=== PATIENT | female | born 1980 | race Caucasian/White ===

== ENCOUNTER 2018-02-05 08:30 | Day surgery (SDC) | payer BC ==
[2018-02-03 12:26] VITALS: BMI 34.4
--- NOTE | 2018-02-05 08:14 | P.GSHP ---
History of Present Illness H&P Date: 02/05/18 CHIEF COMPLAINT: Altered bowel habits HISTORY OF PRESENT ILLNESS: The patient is a 38-year-old female who presents for altered bowel habit. Lower endoscopy was offered for further evaluation and management. PAST MEDICAL HISTORY: Please see list. PAST SURGICAL HISTORY: Please see list. MEDICATIONS: Please see list. ALLERGIES: Please see list. SOCIAL HISTORY: No illicit drug use FAMILY HISTORY: No reports of Crohn disease or ulcerative colitis. REVIEW OF ORGAN SYSTEMS: CONSTITUTIONAL: No reports of fevers or chills. PHYSICAL EXAM: VITAL SIGNS: Stable GENERAL: Well-developed pleasant in no acute distress. HEENT: No scleral icterus. Extraocular movements grossly intact. Moist buccal mucosa. NECK: Supple without lymphadenopathy. CHEST: Unlabored respirations. Equal bilateral excursions. CARDIOVASCULAR: Regular rate and rhythm. Distal 2+ pulses. ABDOMEN: Soft, nontender, nondistended. MUSCULOSKELETAL: No clubbing, cyanosis, or edema. ASSESSMENT: 1. Altered bowel habits PLAN: 1. Recommend proceeding with a lower endoscopy Past Medical History Past Medical History: Hypertension, Osteoarthritis (OA) Additional Past Medical History / Comment(s): FAST HEART RATE ,MIGRAINE HEADACHE , IBS, History of Any Multi-Drug Resistant Organisms: None Reported Past Surgical History: No Surgical Hx Reported Past Anesthesia/Blood Transfusion Reactions: Family History of Problems w/ Anesthesia Additional Past Anesthesia/Blood Transfusion Reaction / Comment(s): FIRST ANESTHETIC. FATHER- DIFFICULTY WITH BREATHING Smoking Status: Never smoker - Past Family History Mother Family Medical History: No Reported History Medications and Allergies Home Medications Medication Instructions Recorded Confirmed Type Lisinopril/Hydrochlorothiazide 1 each PO DAILY 02/03/18 02/03/18 History [Zestoretic 10-12.5] Metoprolol Succinate [Toprol Xl] 50 mg PO DAILY 02/03/18 02/03/18 History Allergies Allergy/AdvReac Type Severity Reaction Status Date / Time dichloralphenazone Allergy HEADACHE Verified 02/03/18 12:05 [From Midrin] AND HIGH BLOOD PRESSURE isometheptene [From Midrin] Allergy HEADACHE Verified 02/03/18 12:05 AND HIGH BLOOD PRESSURE
[~2018-02-05 08:30] MED LIST: LACTATED RINGERS 1,000 ML IV SCH; LIDOCAINE 1% 20 ML VIAL (10MG/ML) FOR IV START INTRADERMA PRN
[2018-02-05 08:58] VITALS: RESP 16; TEMP 97.8
[2018-02-05] MEDS ORDERED: PROPOFOL 10 MG/ML 20 ML VIAL IV ONE (09:46)
--- NOTE | 2018-02-05 10:21 | P.PCN ---
Date of Procedure: 02/05/18 Description of Procedure: PREOPERATIVE DIAGNOSIS: Change in bowel habits Chronic diarrhea POSTOPERATIVE DIAGNOSIS: Change in bowel habits Chronic diarrhea OPERATION: Colonoscopy to the ileocecal valve and appendiceal orifice. Colonoscopy with random cold forceps biopsies for microscopic colitis SURGEON: Homa Allen MD. ANESTHESIA: MAC. INDICATIONS: The patient is a 38-year-old female who presents for colonoscopy screening. Benefits and risks were described and informed consent was obtained. DESCRIPTION OF PROCEDURE: The patient had undergone Gatorade, MiraLAX and Dulcolax prep. She had been brought into the operating room and laid in the left lateral decubitus position. After adequate intravenous sedation, the rectum was examined with 2% lidocaine jelly. No external hemorrhoids were encountered. The rectal tone was within normal limits. No lesions were palpated in the rectal vault. An Olympus colonoscope was advanced until the ileocecal valve and appendiceal orifice were clearly viewed. The prep was excellent with clear visualization of the mucosal folds. The scope was removed with visualization of each mucosal fold. No scattered diverticulosis was encountered. No colonic polyps were found. Random cold forceps biopsies were obtained throughout the colon. Retroflexion of the scope demonstrated grade 1 internal hemorrhoids without active bleeding or inflammation. The colon was desufflated. The patient had tolerated the procedure well. Withdrawal time was over 6 minutes. FINDINGS: Internal hemorrhoids, grade 1 No external prolapsed hemorrhoids. No arteriovenous malformations. No adenomatous polyps. Random cold forceps biopsies were obtained throughout the colon. No sigmoid diverticulosis RECOMMENDATIONS: Lower endoscopy in 10 years per screening guidelines, 2027. Plan - Discharge Summary New Discharge Prescriptions: No Action Metoprolol Succinate [Toprol Xl] 50 mg PO DAILY Lisinopril/Hydrochlorothiazide [Zestoretic 10-12.5] 1 each PO DAILY Discharge Medication List Lisinopril/Hydrochlorothiazide [Zestoretic 10-12.5] 1 each PO DAILY 02/03/18 [ History] Metoprolol Succinate [Toprol Xl] 50 mg PO DAILY 02/03/18 [History]
[2018-02-05 10:40] VITALS: BP 140/83; PULSE 60
== END 2018-02-05 10:52 | disposition home or self-care (01) ==
LOC: ORWHC2ENDO 08:30
PROVIDERS: ATTEND Surgery Plastic and Reconstructive Surgery
DX: K52.9 Noninfective gastroenteritis and colitis, unspecified (principal); R19.4 Change in bowel habit; K64.0 First degree hemorrhoids; I10 Essential (primary) hypertension; M19.90 Unspecified osteoarthritis, unspecified site; K58.9 Irritable bowel syndrome, unspecified; Z79.899 Other long term (current) drug therapy; Z88.8 Allergy status to other drugs, medicaments and biological substances; K21.9 Gastro-esophageal reflux disease without esophagitis
CPT/HCPCS: 81025; 88305; 45380; J2704

== ENCOUNTER → 2019-05-21 | Outpatient (CLI) | payer BC ==
--- NOTE | 2019-05-26 09:50 | MM ---
Reason for exam: screening (asymptomatic). History: Family history of breast cancer in maternal grandmother and breast cancer in maternal aunt. Physical Findings: A clinical breast exam by your physician is recommended on an annual basis and results should be correlated with mammographic findings. MG 3D Screening Mammo W/Cad Bilateral CC and MLO view(s) were taken. No prior studies available for comparison. There are scattered fibroglandular densities. There is no discrete abnormality. ASSESSMENT: Negative, BI-RAD 1 RECOMMENDATION: Routine screening mammogram of both breasts in 1 year.
== END | disposition home or self-care (01) ==
LOC: RADMAMWWP 12:59
PROVIDERS: ATTEND Family Medicine
DX: Z12.31 Encounter for screening mammogram for malignant neoplasm of breast (principal)
CPT/HCPCS: 77063; 77067

== ENCOUNTER → 2021-03-07 | Outpatient (CLI) | payer BC ==
--- NOTE | 2021-03-09 08:52 | MM ---
Reason for exam: screening (asymptomatic). Last mammogram was performed 1 year and 10 months ago. History: Family history of breast cancer in maternal grandmother and breast cancer in maternal aunt. Physical Findings: A clinical breast exam by your physician is recommended on an annual basis and results should be correlated with mammographic findings. MG 3D Screening Mammo W/Cad Bilateral CC and MLO view(s) were taken. Prior study comparison: May 21, 2019, bilateral MG 3d screening mammo w/cad. The breast tissue is heterogeneously dense. This may lower the sensitivity of mammography. There is no dominant lesion. ASSESSMENT: Incomplete: need additional imaging evaluation, BI-RAD 0 RECOMMENDATION: Ultrasound of the right breast. (localized pain subareolar right breast) [facility] will attempt to contact patient to return for ultrasound.
== END | disposition home or self-care (01) ==
LOC: RADMAMWWP 13:10
PROVIDERS: ATTEND Family Medicine
DX: Z12.31 Encounter for screening mammogram for malignant neoplasm of breast (principal); Z80.3 Family history of malignant neoplasm of breast
CPT/HCPCS: 77063; 77067

== ENCOUNTER → 2021-03-30 | Outpatient (CLI) | payer BC ==
--- NOTE | 2021-03-31 14:58 | USB ---
Reason for exam: additional evaluation requested from abnormal screening. History: Family history of breast cancer in maternal grandmother and breast cancer in maternal aunt. Physical Findings: Nurse did not find any significant physical abnormalities on exam. US Breast Workup Limited RT Technologist: Audrey Orellana Right limited breast ultrasound including focal area of concern, retroareolar and axilla demonstrates no cystic or solid lesion seen. No sonographic findings. These results were verbally communicated with the patient and result sheet given to the patient on 03/30/21. ASSESSMENT: Benign, BI-RAD 2 RECOMMENDATION: Return to routine screening mammogram schedule for both breasts.
== END | disposition home or self-care (01) ==
LOC: RADUSWWP 14:54
PROVIDERS: ATTEND Family Medicine
DX: R92.8 Other abnormal and inconclusive findings on diagnostic imaging of breast (principal); Z80.3 Family history of malignant neoplasm of breast

== ENCOUNTER → 2023-03-12 | Outpatient (CLI) | payer BC ==
--- NOTE | 2023-03-13 16:33 | MM ---
Reason for Exam: Screening (asymptomatic). Last mammogram was performed 2 year(s) and 0 month(s) ago. Patient History: Menarche at age 10. First Full-Term at age 18. Premenopausal. Maternal grandmother had breast cancer. Maternal aunt had breast cancer. Last menstrual period: 03/01/2023 Risk Values: Diana 5 year model risk: 0.7%. NCI Lifetime model risk: 8.6%. Prior Study Comparison: 05/21/2019 Bilateral Screening Mammogram, [facility]. 03/07/2021 Bilateral Screening Mammogram, [facility]. Tissue Density: There are scattered fibroglandular densities. Findings: Analyzed By CAD. Pattern appears symmetrical and stable. No suspicious groups of microcalcifications, spiculated or lobular masses, architectural distortion or other secondary signs of malignancy are mammographically apparent. Overall Assessment: Benign, BI-RAD 2 Management: Screening Mammogram of both breasts in 1 year. A negative mammogram report should not preclude additional follow up of suspicious palpable abnormalities. Patient should continue monthly self breast exam. A clinical breast exam by your physician is recommended on an annual basis and results should be correlated with mammographic findings. Electronically signed and approved by: Jovanny Chaudhry D.O. Radiologis
== END | disposition home or self-care (01) ==
LOC: RADMAMWWP 13:33
PROVIDERS: ATTEND Family Medicine
DX: Z12.31 Encounter for screening mammogram for malignant neoplasm of breast (principal); Z80.3 Family history of malignant neoplasm of breast
CPT/HCPCS: 77063; 77067

== ENCOUNTER 2023-09-08 07:06 | Emergency (ER) | payer BC ==
--- NOTE | 2023-09-08 07:45 | ED ---
Female Urogenital HPI - General Chief complaint: Vaginal Bleeding Stated complaint: vaginal bleeding Time Seen by Provider: 09/08/23 07:20 Source: patient, RN notes reviewed Mode of arrival: ambulatory Limitations: no limitations - History of Present Illness Initial comments: This is a 43-year-old female who presents to the emergency department for vagin al bleeding. States that this started out as light spotting, and has consistently increased. She was previously going through one tampon an hour and is now going through 1 tampon every half hour. She is not taking any kind of control. Denies any chance of . States that her periods are typically regular. Denies any history of similar problems in the past. Reports a known uterine fibroid, but otherwise denies any gynecological issues. MD Complaint: vaginal bleeding Onset/Timin -: days(s) - Related Data Home Medications Medication Instructions Recorded Confirmed Lisinopril/Hydrochlorothiazide 1 each PO DAILY 02/03/18 02/03/18 [Zestoretic 10-12.5] Metoprolol Succinate [Toprol Xl] 50 mg PO DAILY 02/03/18 02/03/18 Allergies Allergy/AdvReac Type Severity Reaction Status Date / Time dichloralphenazone Allergy HEADACHE Verified 09/08/23 07:19 [From Midrin] AND HIGH BLOOD PRESSURE isometheptene [From Midrin] Allergy HEADACHE Verified 09/08/23 07:19 AND HIGH BLOOD PRESSURE Review of Systems ROS Statement: Those systems with pertinent positive or pertinent negative responses have been documented in the HPI. ROS Other: All systems not noted in ROS Statement are negative. Past Medical History Past Medical History: Hypertension, Osteoarthritis (OA) Additional Past Medical History / Comment(s): FAST HEART RATE ,MIGRAINE HEADACHE , IBS, History of Any Multi-Drug Resistant Organisms: None Reported Past Surgical History: No Surgical Hx Reported Past Anesthesia/Blood Transfusion Reactions: Family History of Problems w/ Anesthesia Additional Past Anesthesia/Blood Transfusion Reaction / Comment(s): FIRST ANESTHETIC. FATHER- DIFFICULTY WITH BREATHING Past Psychological History: No Psychological Hx Reported Smoking Status: Never smoker Past Alcohol Use History: Occasional Past Drug Use History: None Reported - Past Family History Mother Family Medical History: No Reported History General Exam Limitations: no limitations General appearance: alert, in no apparent distress Head exam: Present: atraumatic, normocephalic, normal inspection Respiratory exam: Present: normal lung sounds bilaterally. Absent: respiratory distress, wheezes, rales, rhonchi, stridor Cardiovascular Exam: Present: regular rate, normal rhythm, normal heart sounds. Absent: systolic murmur, diastolic murmur, rubs, gallop, clicks GI/Abdominal exam: Present: soft, normal bowel sounds. Absent: distended, tenderness, guarding, rebound, rigid Neurological exam: Present: alert, oriented X3, CN II-XII intact Psychiatric exam: Present: normal affect, normal mood Skin exam: Present: warm, dry, intact, normal color. Absent: rash Course Vital Signs 09/08/23 09/08/23 09/08/23 07:18 08:52 10:07 Temperature 98.2 F Pulse Rate 88 72 70 Respiratory 20 18 18 Rate Blood Pressure 134/85 130/75 132/66 O2 Sat by Pulse 99 95 99 Oximetry 09/08/23 11:11 Temperature 98.4 F Pulse Rate 68 Respiratory 18 Rate Blood Pressure 122/64 O2 Sat by Pulse 99 Oximetry Medical Decision Making - Medical Decision Making This is a 43-year-old female who presents to the emergency department for vaginal bleeding. Was pt. sent in by a medical professional or institution? @ -No Did you speak to anyone other than the patient for history? @ -No Did you review nursing and triage notes? @ -Yes, and I agree, it is accurate with regards to the patient's symptoms. Were old charts reviewed? @ -No Differential Diagnosis? @ -Differential Vaginal Bleeding: Spontaneous , threatened , molar , ectopic , incompetent cervix, placenta previa, uterine rupture, dysfunctional uterine bleeding, hemorrhage, uterine fibroids, malignancy, coagulopathy, PID, cervicitis, adenomyosis, vaginal trauma, this is not meant to be an all- inclusive list. EKG interpreted by me (3pts min.)? @ -Not obtained X-rays interpreted by me (1pt min.)? @ -Not obtained CT interpreted by me (1pt min.)? @ -Not obtained U/S interpreted by me (1pt. min.)? @ -Transvaginal ultrasound obtained. My interpretation identifies a right- sided uterine fibroid. What testing was considered but not performed? (CT, X-rays, U/S, labs)? Why? @ -None What meds were considered but not given? Why? @ -None Did you discuss the management of the patient with other professionals? @ -No Did you reconcile home meds? @ -No Was smoking cessation discussed for >3mins.? @ -No Was critical care preformed (if so, how long)? @ -No Were there social determinants of health that impacted care today? How? (Homelessness, low income, unemployed, alcoholism, drug addiction, transportation, low edu. Level, literacy, decrease access to med. care, fpc, rehab)? @ -No Was there de-escalation of care discussed even if they declined? (Discuss DNR or withdrawal of care, Hospice)? @ -No What co-morbidities impacted this encounter? (DM, HTN, Smoking, COPD, CAD, Cancer, CVA, Hep., AIDS, mental health diagnosis, sleep apnea, morbid obesity)? @ -HTN Was patient admitted / discharged? @ -Discharged. Lab work obtained demonstrating a hemoglobin of 9.8 and was otherwise unremarkable. We have no prior values for comparison. Urinalysis rev eals a large amount of blood without evidence of infection. Patient declined a pelvic exam. Transvaginal ultrasound obtained revealing a thickened endometrium and advised correlation for phase of menstruation. The ultrasound identified a right-sided uterine fibroid, which the patient is already aware of. Patient was discharged home in stable condition and given information for [facility] follow-up. Strict return parameters reviewed as well with regards to the bleeding. Undiagnosed new problem with uncertain prognosis? @ -None Drug Therapy requiring intensive monitoring for toxicity (Heparin, Nitro, Insulin, Cardizem)? @ -None Were any procedures done? @ -None Diagnosis/symptom? @ -Menorrhagia/dysfunctional uterine bleeding Acute, or Chronic, or Acute on Chronic? @ -Acute Uncomplicated (without systemic symptoms) or Complicated (systemic symptoms)? @ -Uncomplicated Side effects of treatment? @ -None Exacerbation, Progression, or Severe Exacerbation] @ -Not applicable Poses a threat to life or bodily function? @ -This will depend on the cause of this and if the bleeding persists. Return precautions reviewed in depth, the patient is instructed to return to the emergency department with any new, worsening, or concerning symptoms. Patient verbalized understanding. This case was discussed in detail with the attending ED physician, Dr. Reece. Presentation, findings, and treatment plan discussed in detail as well. - Lab Data Result diagrams: 09/08/23 07:47 09/08/23 07:47 Lab Results 09/08/23 09/08/23 09/08/23 Range/Units 07:47 07:47 07:47 WBC 5.8 (3.8-10.6) k/uL RBC 2.95 L (3.80-5.40) m/uL Hgb 9.8 L (11.4-16.0) gm/dL Hct 27.9 L (34.0-46.0) % MCV 94.5 (80.0-100.0) fL MCH 33.3 (25.0-35.0) pg MCHC 35.2 (31.0-37.0) g/dL RDW 12.9 (11.5-15.5) % Plt Count 250 (150-450) k/uL MPV 8.3 Neutrophils % 71 % Lymphocytes % 20 % Monocytes % 5 % Eosinophils % 2 % Basophils % 0 % Neutrophils # 4.1 (1.3-7.7) k/uL Lymphocytes # 1.1 (1.0-4.8) k/uL Monocytes # 0.3 (0-1.0) k/uL Eosinophils # 0.1 (0-0.7) k/uL Basophils # 0.0 (0-0.2) k/uL PT 10.4 (10.0-12.5) sec INR 0.9 (<1.2) APTT 22.2 (22.0-30.0) sec Sodium 138 (137-145) mmol/L Potassium 4.1 (3.5-5.1) mmol/L Chloride 105 (98-107) mmol/L Carbon Dioxide 24 (22-30) mmol/L Anion Gap 9 mmol/L BUN 16 (7-17) mg/dL Creatinine 0.56 (0.52-1.04) mg/dL Est GFR (CKD-EPI)AfAm >90 (>60 ml/min/1.73 sqM) Est GFR (CKD-EPI)NonAf >90 (>60 ml/min/1.73 sqM) Glucose 116 H (74-99) mg/dL Calcium 8.9 (8.4-10.2) mg/dL Total Bilirubin 0.4 (0.2-1.3) mg/dL AST 23 (14-36) U/L ALT 26 (4-34) U/L Alkaline Phosphatase 39 (38-126) U/L Total Protein 6.2 L (6.3-8.2) g/dL Albumin 3.9 (3.5-5.0) g/dL TSH 3.250 (0.465-4.680) mIU/L Urine Color Urine Appearance (Clear) Urine pH (5.0-8.0) Ur Specific [place] (1.001-1.035) Urine Protein (Negative) Urine Glucose (UA) (Negative) Urine Ketones (Negative) Urine Blood (Negative) Urine Nitrite (Negative) Urine Bilirubin (Negative) Urine Urobilinogen (<2.0) mg/dL Ur Leukocyte Esterase (Negative) Urine RBC (0-5) /hpf Urine WBC (0-5) /hpf Ur Squamous Epith Cells (0-4) /hpf Hyaline Casts (0-2) /lpf Urine Mucus (None) /hpf Urine HCG, Qual (Not Detectd) 09/08/23 09/08/23 Range/Units 07:47 07:47 WBC (3.8-10.6) k/uL RBC (3.80-5.40) m/uL Hgb (11.4-16.0) gm/dL Hct (34.0-46.0) % MCV (80.0-100.0) fL MCH (25.0-35.0) pg MCHC (31.0-37.0) g/dL RDW (11.5-15.5) % Plt Count (150-450) k/uL MPV Neutrophils % % Lymphocytes % % Monocytes % % Eosinophils % % Basophils % % Neutrophils # (1.3-7.7) k/uL Lymphocytes # (1.0-4.8) k/uL Monocytes # (0-1.0) k/uL Eosinophils # (0-0.7) k/uL Basophils # (0-0.2) k/uL PT (10.0-12.5) sec INR (<1.2) APTT (22.0-30.0) sec Sodium (137-145) mmol/L Potassium (3.5-5.1) mmol/L Chloride (98-107) mmol/L Carbon Dioxide (22-30) mmol/L Anion Gap mmol/L BUN (7-17) mg/dL Creatinine (0.52-1.04) mg/dL Est GFR (CKD-EPI)AfAm (>60 ml/min/1.73 sqM) Est GFR (CKD-EPI)NonAf (>60 ml/min/1.73 sqM) Glucose (74-99) mg/dL Calcium (8.4-10.2) mg/dL Total Bilirubin (0.2-1.3) mg/dL AST (14-36) U/L ALT (4-34) U/L Alkaline Phosphatase (38-126) U/L Total Protein (6.3-8.2) g/dL Albumin (3.5-5.0) g/dL TSH (0.465-4.680) mIU/L Urine Color Light Yellow Urine Appearance Clear (Clear) Urine pH 5.0 (5.0-8.0) Ur Specific [place] 1.022 (1.001-1.035) Urine Protein Trace H (Negative) Urine Glucose (UA) Negative (Negative) Urine Ketones Negative (Negative) Urine Blood Large H (Negative) Urine Nitrite Negative (Negative) Urine Bilirubin Negative (Negative) Urine Urobilinogen <2.0 (<2.0) mg/dL Ur Leukocyte Esterase Negative (Negative) Urine RBC 129 H (0-5) /hpf Urine WBC 7 H (0-5) /hpf Ur Squamous Epith Cells <1 (0-4) /hpf Hyaline Casts 17 H (0-2) /lpf Urine Mucus Occasional H (None) /hpf Urine HCG, Qual Not Detected (Not Detectd) - Radiology Data Radiology results: report reviewed, image reviewed Disposition Clinical Impression: Menorrhagia, Dysfunctional uterine bleeding Disposition: HOME SELF-CARE Instructions (If sedation given, give patient instructions): Menorrhagia (ED) Additional Instructions: Return to the emergency department with any new, worsening, or concerning symptoms. Contact any of the [facility] providers listed below to become established for ongoing care. Follow up with your primary care provider in 1-2 days. Is patient prescribed a controlled substance at d/c from ED?: No Referrals: Callum Wheeler DO [Primary Care Provider] - 1-2 days Katrina Queen DO [Doctor of Osteopathic Medicine] - 1-2 days London Mott DO [REFERRING] - 1-2 days Bernie Angelo DO [Doctor of Osteopathic Medicine] - 1-2 days
[2023-09-08 08:04] LABS: Basophils % (A) 0 %; Eosinophils # (A) 0.1 k/uL (0-0.7); Eosinophils % (A) 2 %; HCT 27.9 % (34.0-46.0); HGB 9.8 gm/dL (11.4-16.0); Lymphocytes # (A) 1.1 k/uL (1.0-4.8); Lymphocytes % (A) 20 %; MCH 33.3 pg (25.0-35.0); MCHC 35.2 g/dL (31.0-37.0); MCV 94.5 fL (80.0-100.0); Mean Platelet Volume 8.3; Monocytes # (A) 0.3 k/uL (0-1.0); Monocytes % (A) 5 %; Neutrophils # (A) 4.1 k/uL (1.3-7.7); Neutrophils % (A) 71 %; Platelet Count 250 k/uL (150-450); RBC 2.95 m/uL (3.80-5.40); RDW 12.9 % (11.5-15.5); WBC 5.8 k/uL (3.8-10.6)
[2023-09-08 08:19] LABS: Appearance,Urine Clear (Clear); Bilirubin,Urine Negative (Negative); Blood,Urine Large (Negative); Color,Urine Light Yellow; Glucose,Urine (UA) Negative (Negative); Hyaline Casts,Urine 17 /lpf (0-2); Ketones,Urine Negative (Negative); Leukocyte Esterase,Urine Negative (Negative); Mucus,Urine Occasional /hpf; Nitrite,Urine Negative (Negative); Protein,Urine Trace (Negative); RBC,Urine 129 /hpf (0-5); Specific Gravity,Urine 1.022 (1.001-1.035); Squamous Epithelial Cell,Urine <1 /hpf (0-4); Urobilinogen,Urine <2.0 mg/dL (<2.0); WBC,Urine 7 /hpf (0-5)
[2023-09-08 08:20] LABS: ALT 26 U/L (4-34); AST 23 U/L (14-36); African American GFR (CKD) >90 (>60 ml/min/1.73 sqM); Albumin 3.9 g/dL (3.5-5.0); Alkaline Phosphatase 39 U/L (38-126); Anion Gap 9 mmol/L; Blood Urea Nitrogen 16 mg/dL (7-17); Calcium 8.9 mg/dL (8.4-10.2); Carbon Dioxide 24 mmol/L (22-30); Chloride 105 mmol/L (98-107); Glucose 116 mg/dL (74-99); Non-African American GFR(CKD) >90 (>60 ml/min/1.73 sqM); Potassium 4.1 mmol/L (3.5-5.1); Sodium 138 mmol/L (137-145); Total Bilirubin 0.4 mg/dL (0.2-1.3); Total Protein 6.2 g/dL (6.3-8.2)
[2023-09-08 08:23] LABS: INR 0.9 (<1.2); Partial Thromboplastin Time 22.2 sec (22.0-30.0); Prothrombin Time 10.4 sec (10.0-12.5)
[2023-09-08 08:59] VITALS: RESP 18
--- NOTE | 2023-09-08 10:02 | US ---
EXAMINATION TYPE: US transvaginal DATE OF EXAM: 09/08/2023 COMPARISON: NONE CLINICAL INDICATION: Female, 43 years old with history of Heavy vaginal bleeding; TECHNIQUE: Transvaginal ER exam Date of LMP: 3 weeks ago EXAM MEASUREMENTS: Uterus: 11.4 x 6.4 x 6.7 cm Endometrial Stripe: 2.4 cm Right Ovary: not seen Left Ovary: not seen 1. Uterus: enlarged, heterogeneous, 5.8 x 4.7 x 5.0cm fibroid right uterus 2. Endometrium: thickened 3. Right Ovary: not seen 4. Left Ovary: not seen 5. Bilateral Adnexa: wnl 6. Posterior cul-de-sac: wnl IMPRESSION: Fibroid uterus. Endometrium is a thickened appearance. Correlate with phase of menstruation. Correlate for mitral hyp erplasia.
[2023-09-08 11:24] VITALS: BP 122/64; PULSE 68; TEMP 98.4
== END 2023-09-08 11:16 | disposition home or self-care (01) ==
LOC: EC 07:06
DX: N92.0 Excessive and frequent menstruation with regular cycle (principal); N93.8 Other specified abnormal uterine and vaginal bleeding; I10 Essential (primary) hypertension; M19.90 Unspecified osteoarthritis, unspecified site; Z79.899 Other long term (current) drug therapy
CPT/HCPCS: 36415; 76830; 80053; 81001; 81025; 84443; 85025; 85610; 85730; 99284

== ENCOUNTER 2024-12-09 14:42 | Inpatient (IN) | payer BC, OTHER ==
[2024-12-09] MEDS: SODIUM CHLORIDE 0.9% 1,000 ML IV ONE ×3 (15:40→15:50)
--- NOTE | 2024-12-09 15:40 | ED ---
GI Bleed HPI - General Chief complaint: GI Bleed Stated complaint: poss GI bleed Time Seen by Provider: 12/09/24 15:05 Source: patient, EMS Mode of arrival: EMS Limitations: no limitations - History of Present Illness Initial comments: 44-year-old female with past medical history of daily alcohol use who presents to the emergency department with GI bleed. Patient reports that earlier today she started vomiting maroon-colored blood and was having bright red blood coming from her rectum. She has had so many episodes that she cannot count. She did admit that 2 weeks ago she had some bloody stools however this resolved. She has been using Tums at home to try and alleviate her symptoms. She does admit to generalized abdominal cramping. She does not take any blood thinners. She does take medications for hypertension and did take them today but states she likely threw them back up. EMS was able to visualize the hematemesis on scene. She did have IV access and a 500 mL bolus administered. She also had 4 mg of Zofran. Patient denies any alcohol today but admits to a few beers yesterday. No history of liver disease or esophageal varices. She denies history of ulcers. She does admit that she has had an EGD and colonoscopy. Patient arrives and does have a pool of blood underneath her. She is hypotensive. She denies any changes in her urination to include dysuria, hematuria or difficulty voiding. She does report vaginal bleeding in the past due to fibroids. She was on control up until a few weeks ago but stopped this. She denies having any vaginal bleeding at this time. No other alleviating, precipitating modifying factors - Related Data Home Medications Medication Instructions Recorded Confirmed Hctz 12.5mg Tablet 12.5 mg PO DAILY 12/09/24 12/09/24 Metoprolol Succinate [Toprol XL] 50 mg PO BID 12/09/24 12/09/24 Rosuvastatin Calcium 5 mg PO DAILY 12/09/24 12/09/24 lisinopriL [Zestril] 20 mg PO DAILY 12/09/24 12/09/24 norethindrone-e.estradioL-iron 1 tab PO DAILY 12/09/24 12/09/24 [Aurovela 24 Fe 1 mg-20 Mcg Tab] Previous Rx's Medication Instructions Recorded Pantoprazole Sodium [Protonix] 40 mg PO DAILY 30 Days #30 tab 12/11/24 Allergies Allergy/AdvReac Type Severity Reaction Status Date / Time dichloralphenazone Allergy HEADACHE Verified 12/09/24 15:24 [From Midrin] AND HIGH BLOOD PRESSURE isometheptene [From Midrin] Allergy HEADACHE Verified 12/09/24 15:24 AND HIGH BLOOD PRESSURE Review of Systems ROS Statement: Those systems with pertinent positive or pertinent negative responses have been documented in the HPI. ROS Other: All systems not noted in ROS Statement are negative. Past Medical History Past Medical History: Hypertension, Osteoarthritis (OA) Additional Past Medical History / Comment(s): FAST HEART RATE ,MIGRAINE HEADACHE , IBS, History of Any Multi-Drug Resistant Organisms: None Reported Past Surgical History: No Surgical Hx Reported Past Anesthesia/Blood Transfusion Reactions: Family History of Problems w/ Anesthesia Additional Past Anesthesia/Blood Transfusion Reaction / Comment(s): FIRST ANESTHETIC. FATHER- DIFFICULTY WITH BREATHING Past Psychological History: No Psychological Hx Reported Smoking Status: Never smoker Past Alcohol Use History: Daily Past Drug Use History: None Reported - Past Family History Mother Family Medical History: No Reported History Father Additional Family Medical History / Comment(s): hx of heart stents General Exam Limitations: no limitations General appearance: alert, lethargic Head exam: Present: atraumatic, normocephalic, normal inspection Eye exam: Present: normal appearance, PERRL, EOMI. Absent: scleral icterus, conjunctival injection, periorbital swelling ENT exam: Present: mucous membranes dry Neck exam: Present: normal inspection. Absent: tenderness, meningismus, lymphadenopathy Respiratory exam: Present: normal lung sounds bilaterally. Absent: respiratory distress, wheezes, rales, rhonchi, stridor Cardiovascular Exam: Present: regular rate, normal rhythm, normal heart sounds. Absent: systolic murmur, diastolic murmur, rubs, gallop, clicks GI/Abdominal exam: Present: soft, normal bowel sounds. Absent: distended, tenderness, guarding, rebound, rigid Rectal exam: Present: normal inspection, bloody stool. Absent: hemorrhoids, mass External exam: Present: normal external exam Speculum exam: Absent: vaginal bleeding Extremities exam: Present: normal inspection, full ROM, normal capillary refill. Absent: tenderness, pedal edema, joint swelling, calf tenderness Back exam: Present: normal inspection Neurological exam: Present: alert Psychiatric exam: Present: flat affect Skin exam: Present: mottled, other (Cap refill is greater than 5 seconds) Course Vital Signs 12/09/24 12/09/24 12/09/24 14:50 15:30 15:45 Temperature 94 F L Pulse Rate 72 80 Respiratory 18 10 L 26 H Rate Blood Pressure 90/62 74/52 79/54 O2 Sat by Pulse 97 Oximetry 12/09/24 12/09/24 12/09/24 17:25 18:45 20:00 Temperature 97.4 F L 97.8 F Pulse Rate 92 79 101 H Respiratory 18 16 18 Rate Blood Pressure 117/70 107/66 108/50 O2 Sat by Pulse 99 95 95 Oximetry 12/09/24 12/09/24 12/10/24 21:32 23:00 01:00 Temperature Pulse Rate 96 104 H 101 H Respiratory 18 17 18 Rate Blood Pressure 133/58 103/59 119/72 O2 Sat by Pulse 93 L 93 L 92 L Oximetry 12/10/24 12/10/24 12/10/24 02:00 03:00 05:30 Temperature Pulse Rate 98 98 96 Respiratory 18 18 17 Rate Blood Pressure 114/68 133/76 123/72 O2 Sat by Pulse 93 L 95 98 Oximetry 12/10/24 12/10/24 12/10/24 08:11 08:48 13:07 Temperature 98.6 F 98.9 F Pulse Rate 103 H 111 H 98 Respiratory 18 18 20 Rate Blood Pressure 131/91 131/87 129/91 O2 Sat by Pulse 96 97 98 Oximetry Medical Decision Making - Medical Decision Making Was pt. sent in by a medical professional or institution (, PA, MANAGER FORMS, urgent care, hospital, or [facility]...) When possible be specific @ -No Did you speak to anyone other than the patient for history (EMS, parent, family, police, friend...)? What history was obtained from this source @ -Spoke with EMS for history Did you review nursing and triage notes (agree or disagree)? Why? @ -I reviewed and agree with nursing and triage notes Were old charts reviewed (outside hosp., previous admission, EMS record, old EKG, old radiological studies, urgent care reports/EKG's, [facility] records)? Report findings @ -No old charts were reviewed Differential Diagnosis (chest pain, altered mental status, abdominal pain women, abdominal pain men, vaginal bleeding, weakness, fever, dyspnea, syncope, headache, dizziness, GI bleed, back pain, seizure, CVA, palpatations, mental health, musculoskeletal)? @ -Differential GI Bleed: Esophageal varices, aortoenteric fistula, Julia-Francis, gastritis, peptic ulcer disease, diverticulosis, inflammatory bowel disease, hemorrhoids, fissure, colitis, malignancy, Meckel's diverticulum, this is not meant to be an all- inclusive list. EKG interpreted by me (3pts min.). @ -Not done X-rays interpreted by me (1pt min.). @ -None done CT interpreted by me (1pt min.). @ -Yes which demonstrates no acute process U/S interpreted by me (1pt. min.). @ -None done What testing was considered but not performed or refused? (CT, X-rays, U/S, la bs)? Why? @ -None What meds were considered but not given or refused? Why? @ -Octreotide was considered however patient has no diagnosis of esophageal varices Did you discuss the management of the patient with other professionals (professionals i.e. DrBala, PA, MANAGER FORMS, lab, RT, psych nurse, geriatric social work professor, horticultural farmer, teacher, railroad police officer, case operator)? Give summary @ -I spoke with Fransisca from [facility] for admission. I spoke with Dr. Robles for permission to place the patient in the ICU. I also spoke with Dr. Hernández from GI regarding the patient's significant GI bleed Was smoking cessation discussed for >3mins.? @ -No Was critical care preformed (if so, how long)? @ -Yes, 40 minutes for transfusion of blood products Were there social determinants of health that impacted care today? How? (Homelessness, low income, unemployed, alcoholism, drug addiction, transportation, low edu. Level, literacy, decrease access to med. care, m[facility], rehab)? @ -No Was there de-escalation of care discussed even if they declined (Discuss DNR or withdrawal of care, Hospice)? DNR status @ -No What co-morbidities impacted this encounter? (DM, HTN, Smoking, COPD, CAD, Cancer, CVA, ARF, Chemo, Hep., AIDS, mental health diagnosis, sleep apnea, morbid obesity)? @ -Alcohol abuse, hypertension Was patient admitted / discharged? Hospital course, mention meds given and route, prescriptions, significant lab abnormalities, going to OR and other pertinent info. @ -Upon arrival patient was originally seen in room 16. Thorough history and physical exam was performed. Patient is placed on continuous pulse ox and ca rdiac monitoring. Patient has pallor to her skin with very poor cap refill. She does have poor perfusion to her flanks. Blood pressure is markedly low at 60/30. Patient is moved from room 16 to room 1. Rapid 2 units of blood is ordered from blood bank to infuse on the patient due to concern for acute blood loss anemia. Patient does have significant bright red blood per rectum. No vaginal bleeding appreciated. Patient does continue to be hypotensive and therefore she is moved to trauma 1. She does have [address] She was given a liter bolus of normal saline. After the 2 units of blood is rapidly infused to the patient she does have improvement in her color and menta tion. Laboratory studies have been conducted and reviewed with the patient. CT was performed. I did recommend admission for GI bleed with acute blood loss anemia and transient hypovolemic shock. Patient was agreeable to this. I did speak with Dr. Armijo from the ICU. I also spoke with Dr. Hernández from GI and Fransisca from [facility] for the admission. Patient remained in stable condition awaiting a bed in the ICU Undiagnosed new problem with uncertain prognosis? @ -No Drug Therapy requiring intensive monitoring for toxicity (Heparin, Nitro, Insulin, Cardizem)? @ -No Were any procedures done? @ -No Diagnosis/symptom? @ -Acute GI bleed, hypotension secondary to @3, acute blood loss, hx daily etoh use Acute, or Chronic, or Acute on Chronic? @ -Acute Uncomplicated (without systemic symptoms) or Complicated (systemic symptoms)? @ -Complicated Side effects of treatment? @ -No Exacerbation, Progression, or Severe Exacerbation? @ -No Poses a threat to life or bodily function? How? (Chest pain, USA, PR, pneumonia, PE, COPD, DKA, ARF, appy, cholecystitis, CVA, Diverticulitis, Homicidal, Malloy icidal, threat to staff... and all critical care pts) @ -Yes as patient was significantly hypotensive due to hypovolemia/blood loss - Lab Data Result diagrams: 12/11/24 05:35 12/11/24 05:35 Lab Results 12/09/24 12/09/24 12/09/24 Range/Units 15:25 15:25 15:25 WBC 25.0 H (3.8-10.6) k/uL RBC 5.82 H (3.80-5.40) m/uL Hgb 18.6 H (11.4-16.0) gm/dL Hct 55.3 H (34.0-46.0) % MCV 95.1 (80.0-100.0) fL MCH 32.0 (25.0-35.0) pg MCHC 33.6 (31.0-37.0) g/dL RDW 12.5 (11.5-15.5) % Plt Count 341 (150-450) k/uL MPV 7.4 Neutrophils % 91 % Lymphocytes % 4 % Monocytes % 4 % Eosinophils % 1 % Basophils % 0 % Neutrophils # 22.8 H (1.3-7.7) k/uL Lymphocytes # 0.9 L (1.0-4.8) k/uL Monocytes # 0.9 (0-1.0) k/uL Eosinophils # 0.3 (0-0.7) k/uL Basophils # 0.1 (0-0.2) k/uL APTT 21.2 L (22.0-30.0) sec Sodium 136 L (137-145) mmol/L Potassium 4.2 (3.5-5.1) mmol/L Chloride 102 (98-107) mmol/L Carbon Dioxide 18 L (22-30) mmol/L Anion Gap 16 mmol/L BUN 17 (7-17) mg/dL Creatinine 1.35 H (0.52-1.04) mg/dL Est GFR (CKD-EPI)AfAm 55 (>60 ml/min/1.73 sqM) Est GFR (CKD-EPI)NonAf 47 (>60 ml/min/1.73 sqM) Glucose 148 H (74-99) mg/dL Lactic Ac Sepsis Rflx Plasma Lactic Acid Koko (0.7-2.0) mmol/L Calcium 9.6 (8.4-10.2) mg/dL Magnesium 1.5 L (1.6-2.3) mg/dL Total Bilirubin 0.9 (0.2-1.3) mg/dL AST 77 H (14-36) U/L ALT 127 H (4-34) U/L Alkaline Phosphatase 47 (38-126) U/L Troponin I (0.000-0.034) ng/mL Total Protein 7.7 (6.3-8.2) g/dL Albumin 4.7 (3.5-5.0) g/dL Lipase 154 (23-300) U/L Serum Alcohol <10 mg/dL Blood Type Blood Type Confirm Blood Type Recheck Bld Type Recheck Status Antibody Screen Crossmatch Spec Expiration Date 12/09/24 12/09/24 12/09/24 Range/Units 15:25 15:25 15:25 WBC (3.8-10.6) k/uL RBC (3.80-5.40) m/uL Hgb (11.4-16.0) gm/dL Hct (34.0-46.0) % MCV (80.0-100.0) fL MCH (25.0-35.0) pg MCHC (31.0-37.0) g/dL RDW (11.5-15.5) % Plt Count (150-450) k/uL MPV Neutrophils % % Lymphocytes % % Monocytes % % Eosinophils % % Basophils % % Neutrophils # (1.3-7.7) k/uL Lymphocytes # (1.0-4.8) k/uL Monocytes # (0-1.0) k/uL Eosinophils # (0-0.7) k/uL Basophils # (0-0.2) k/uL APTT (22.0-30.0) sec Sodium (137-145) mmol/L Potassium (3.5-5.1) mmol/L Chloride (98-107) mmol/L Carbon Dioxide (22-30) mmol/L Anion Gap mmol/L BUN (7-17) mg/dL Creatinine (0.52-1.04) mg/dL Est GFR (CKD-EPI)AfAm (>60 ml/min/1.73 sqM) Est GFR (CKD-EPI)NonAf (>60 ml/min/1.73 sqM) Glucose (74-99) mg/dL Lactic Ac Sepsis Rflx Plasma Lactic Acid Koko 4.1 H* (0.7-2.0) mmol/L Calcium (8.4-10.2) mg/dL Magnesium (1.6-2.3) mg/dL Total Bilirubin (0.2-1.3) mg/dL AST (14-36) U/L ALT (4-34) U/L Alkaline Phosphatase (38-126) U/L Troponin I <0.012 (0.000-0.034) ng/mL Total Protein (6.3-8.2) g/dL Albumin (3.5-5.0) g/dL Lipase (23-300) U/L Serum Alcohol mg/dL Blood Type A Negative Blood Type Confirm Blood Type Recheck No Previous Record Bld Type Recheck Status CABO Indicated Antibody Screen NEGATIVE Crossmatch See Detail Spec Expiration Date 12/12/2024 - 232412/09/24 12/09/24 Range/Units 15:48 16:25 WBC (3.8-10.6) k/uL RBC (3.80-5.40) m/uL Hgb (11.4-16.0) gm/dL Hct (34.0-46.0) % MCV (80.0-100.0) fL MCH (25.0-35.0) pg MCHC (31.0-37.0) g/dL RDW (11.5-15.5) % Plt Count (150-450) k/uL MPV Neutrophils % % Lymphocytes % % Monocytes % % Eosinophils % % Basophils % % Neutrophils # (1.3-7.7) k/uL Lymphocytes # (1.0-4.8) k/uL Monocytes # (0-1.0) k/uL Eosinophils # (0-0.7) k/uL Basophils # (0-0.2) k/uL APTT (22.0-30.0) sec Sodium (137-145) mmol/L Potassium (3.5-5.1) mmol/L Chloride (98-107) mmol/L Carbon Dioxide (22-30) mmol/L Anion Gap mmol/L BUN (7-17) mg/dL Creatinine (0.52-1.04) mg/dL Est GFR (CKD-EPI)AfAm (>60 ml/min/1.73 sqM) Est GFR (CKD-EPI)NonAf (>60 ml/min/1.73 sqM) Glucose (74-99) mg/dL Lactic Ac Sepsis Rflx Y Plasma Lactic Acid Koko (0.7-2.0) mmol/L Calcium (8.4-10.2) mg/dL Magnesium (1.6-2.3) mg/dL Total Bilirubin (0.2-1.3) mg/dL AST (14-36) U/L ALT (4-34) U/L Alkaline Phosphatase (38-126) U/L Troponin I (0.000-0.034) ng/mL Total Protein (6.3-8.2) g/dL Albumin (3.5-5.0) g/dL Lipase (23-300) U/L Serum Alcohol mg/dL Blood Type Blood Type Confirm A Negative Blood Type Recheck Bld Type Recheck Status Antibody Screen Crossmatch Spec Expiration Date Disposition Clinical Impression: GI bleed, Hematochezia, Hematemesis, Hypotension, Alcohol use Disposition: ADMITTED IP TO THIS [facility] Condition: Serious Is patient prescribed a controlled substance at d/c from ED?: No Time of Disposition: 17:44 Decision to Admit Reason: Admit from EC Decision Date: 12/09/24 Decision Time: 17:44
[2024-12-09] MEDS: SODIUM CHLORIDE 0.9% 500 ML 500 ML IV ONE (16:00)
[2024-12-09 16:01] LABS: Basophils # (A) 0.1 k/uL (0-0.2); Basophils % (A) 0 %; Eosinophils # (A) 0.3 k/uL (0-0.7); Eosinophils % (A) 1 %; HGB 18.6 gm/dL (11.4-16.0); Lymphocytes # (A) 0.9 k/uL (1.0-4.8); Lymphocytes % (A) 4 %; MCHC 33.6 g/dL (31.0-37.0); MCV 95.1 fL (80.0-100.0); Mean Platelet Volume 7.4; Monocytes # (A) 0.9 k/uL (0-1.0); Monocytes % (A) 4 %; Neutrophils # (A) 22.8 k/uL (1.3-7.7); Neutrophils % (A) 91 %; Platelet Count 341 k/uL (150-450); RBC 5.82 m/uL (3.80-5.40); RDW 12.5 % (11.5-15.5)
[2024-12-09 16:03] LABS: HCT 55.3 % (34.0-46.0)
[2024-12-09 16:06] LABS: ALT 127 U/L (4-34); AST 77 U/L (14-36); African American GFR (CKD) 55 (>60 ml/min/1.73 sqM); Albumin 4.7 g/dL (3.5-5.0); Alcohol <10 mg/dL; Alkaline Phosphatase 47 U/L (38-126); Anion Gap 16 mmol/L; Blood Urea Nitrogen 17 mg/dL (7-17); Calcium 9.6 mg/dL (8.4-10.2); Carbon Dioxide 18 mmol/L (22-30); Chloride 102 mmol/L (98-107); Glucose 148 mg/dL (74-99); Lipase 154 U/L (23-300); Magnesium 1.5 mg/dL (1.6-2.3); Non-African American GFR(CKD) 47 (>60 ml/min/1.73 sqM); Potassium 4.2 mmol/L (3.5-5.1); Sodium 136 mmol/L (137-145); Total Bilirubin 0.9 mg/dL (0.2-1.3); Total Protein 7.7 g/dL (6.3-8.2)
[2024-12-09] MEDS: PANTOPRAZOLE 40 MG/10 ML VIAL IVP STA (16:38)
[2024-12-09] MEDS: cefTRIAXone IN SWFI 1,000 MG/10 ML SYRINGE IVP STA (16:42)
--- NOTE | 2024-12-09 16:58 | CT ---
EXAMINATION TYPE: CT angio abdomen pelvis DATE OF EXAM: 12/09/2024 4:43 PM COMPARISON: None available. CLINICAL INDICATION: Female, 44 years old with history of gi bleed; PHH, Possible GI bleed. TECHNIQUE: Multiple thin slice sub-millimeter images were obtained after administration of contrast. 3-D reconstructed images and maximum intensity projection images were obtained. CT angio abdomen pel vis CT Contrast: Contrast used:100 ml mL of Isovue 370 with IV Contrast, Oral contrast used: without Oral Contrast None CT DLP: 1896.1 mGycm, Automated exposure control for dose reduction was used. FINDINGS: CTA Abdomen and pelvis: The abdominal aorta does not demonstrate aneurysmal dilatation. The origins o f the superior mesenteric artery, renal arteries, inferior mesenteric artery, and celiac axis are pat ent. The iliac vessels are normal in morphology LOWER CHEST: No evidence of focal consolidation, pneumothorax or pleural effusion. LIVER: Unremarkable GALLBLADDER AND BILE DUCTS: Unremarkable. PANCREAS: Unremarkable. SPLEEN: Unremarkable. ADRENAL GLANDS: Unremarkable. KIDNEYS AND URETERS: No evidence of hydronephrosis or renal calculus. The ureters are unremarkable. PELVIS BLADDER: Unremarkable REPRODUCTIVE: Heterogeneous fibroid uterus. ABDOMEN & PELVIS STOMACH AND BOWEL: No evidence of active upper or lower gastrointestinal bleeding. Diffuse liquid col onic stool suggestive of diarrhea. No evidence of bowel obstruction. PERITONEUM: No evidence of pneumoperitoneum or free fluid. VASCULATURE: No evidence of aortic aneurysm. Celiac artery and SMA are patent. MUSCULOSKELETAL: No acute osseous abnormalities LYMPH NODES: No gross evidence for lymphadenopathy. SOFT TISSUE/ABDOMINAL WALL: Unremarkable IMPRESSION: No acute abnormality in the abdomen/pelvis. Specifically, no convincing evidence of active upper or l ower gastrointestinal bleeding. [facility], , 12/09/2024 4:56 PM
[2024-12-09] MEDS ORDERED: NALOXONE 0.4 MG/ML 1 ML VIAL IV PRN (17:45)
[2024-12-09] MEDS: MAGNESIUM SULFATE-D5W PMX 1 GM in DEXTROSE/WATER 1 100ML.BAG IVPB ONE (18:40)
[2024-12-09 21:00] LABS: Basophils % (A) 0 %; Eosinophils # (A) 0.2 k/uL (0-0.7); Eosinophils % (A) 1 %; HCT 50.9 % (34.0-46.0); HGB 16.9 gm/dL (11.4-16.0); Lymphocytes # (A) 0.6 k/uL (1.0-4.8); Lymphocytes % (A) 4 %; MCH 31.4 pg (25.0-35.0); MCHC 33.2 g/dL (31.0-37.0); MCV 94.6 fL (80.0-100.0); Mean Platelet Volume 7.5; Monocytes # (A) 0.3 k/uL (0-1.0); Monocytes % (A) 2 %; Neutrophils # (A) 13.5 k/uL (1.3-7.7); Neutrophils % (A) 92 %; Platelet Count 232 k/uL (150-450); RBC 5.38 m/uL (3.80-5.40); RDW 13.1 % (11.5-15.5); WBC 14.6 k/uL (3.8-10.6)
[2024-12-09] MEDS ORDERED: LORazepam 2 MG/ML INJ IV PRN ×3 (22:54)
[2024-12-10 05:43] LABS: Basophils % (A) 0 %; Eosinophils # (A) 0.1 k/uL (0-0.7); Eosinophils % (A) 1 %; HCT 45.6 % (34.0-46.0); HGB 15.5 gm/dL (11.4-16.0); Lymphocytes # (A) 1.2 k/uL (1.0-4.8); Lymphocytes % (A) 12 %; MCH 31.6 pg (25.0-35.0); MCV 93.1 fL (80.0-100.0); Mean Platelet Volume 7.3; Monocytes # (A) 0.5 k/uL (0-1.0); Monocytes % (A) 5 %; Neutrophils # (A) 8.7 k/uL (1.3-7.7); Neutrophils % (A) 81 %; Platelet Count 229 k/uL (150-450); RDW 12.9 % (11.5-15.5); WBC 10.8 k/uL (3.8-10.6)
[2024-12-10 06:06] LABS: African American GFR (CKD) >90 (>60 ml/min/1.73 sqM); Anion Gap 9 mmol/L; Blood Urea Nitrogen 15 mg/dL (7-17); Calcium 8.2 mg/dL (8.4-10.2); Carbon Dioxide 22 mmol/L (22-30); Chloride 106 mmol/L (98-107); Glucose 108 mg/dL (74-99); Non-African American GFR(CKD) >90 (>60 ml/min/1.73 sqM); Sodium 137 mmol/L (137-145)
[2024-12-10] MEDS: PANTOPRAZOLE 40 MG/10 ML VIAL IV SCH ×2 (08:19→19:44)
--- NOTE | 2024-12-10 10:55 | P.CONS ---
History of Present Illness - Reason for Consult Consult date: 12/10/24 GI bleed, hypotension status post 2 units Requesting physician: Lovely Person - Chief Complaint Hematemesis, hematochezia - History of Present Illness This a pleasant 44-year-old female who was brought into the emergency department by EMS after having several episodes of nausea vomiting and diarrhea that started yesterday morning around 10 AM following abdominal pain. She had several episodes and around 1:30 in the afternoon she started having bloody emesis which she states was more of a maroon color followed by several episodes of bright red blood per rectum. She denies being on any anticoagulation. Denies any history of GI bleed other than about 2 weeks ago which she states that she had couple episodes of bright red blood mixed in with her stool. Past medical history includes alcohol use about 5 days a week 1-3 hard liquor drinks and reports has been doing this for at least the last 7 months. Hypertension and osteoarthritis. She denies any history of liver disease, no history of esophageal varices, upper GI bleed or peptic ulcer disease. She has never had an upper endoscopy however has undergone a colonoscopy [place] [address] Allen for changes in her bowel patterns. She had grade 1 internal hemorrhoids and biopsies to look for possible colitis. Biopsies were negative. She has history of loose stool usually 3 to 4-day. No further emesis since yesterday afternoon. No abdominal pain at this time, as she had a recent bowel movement initially there was no blood but then she had some bright red blood per rectum following. Initially she was hypotensive and was admitted to the ICU she is currently in the emergency department who holding for a bed. leukocytosis on admission which is improving. Admitting labs WBC 25.0 hemoglobin 18.6 hematocrit 55 platelet count 341,000 total bilirubin 0.9 AST 77 ALT 127 alkaline phosphatase 47. She is status post 2 units of blood. Today's labs WBC 10.8 hemoglobin 15.5 hematocrit 45 platelet count 229,000 sodium 137 potassium 4.0 BUN 15 creatinine 0.6 she is just magnesium 2.0 CT angiogram abdomen pelvis reports no acute abnormality in the abdomen/pelvis. Specifically no convincing evidence of active upper or lower gastrointestinal bleeding. Review of Systems REVIEW OF SYSTEMS: CARDIOPULMONARY: No chest pain or shortness of breath. Gastrointestinal: Abdominal pain. Nausea and vomiting, hematemesis. Diarrhea with hematochezia. GENITOURINARY: No dysuria or hematuria. MUSCULOSKELETAL: Reports normal range of motion., Joint pain. SKIN: No rashes. No jaundice. ENDOCRINE: No chills, fevers. No excessive weight gain or loss. No polydipsia or polyuria. PSYCHIATRIC: Unremarkable. NEUROLOGY: No change in mental status. Denies dizziness, headache. ENT: Vision unremarkable. CONSTITUTIONAL: No recent weight loss. No fever, chills, night sweats. Past Medical History Past Medical History: Hypertension, Osteoarthritis (OA) Additional Past Medical History / Comment(s): FAST HEART RATE ,MIGRAINE HEADACHE , IBS, History of Any Multi-Drug Resistant Organisms: None Reported Past Surgical History: No Surgical Hx Reported Past Anesthesia/Blood Transfusion Reactions: Family History of Problems w/ Anesthesia Additional Past Anesthesia/Blood Transfusion Reaction / Comm: FIRST ANESTHETIC. FATHER- DIFFICULTY WITH BREATHING Past Psychological History: No Psychological Hx Reported Smoking Status: Never smoker Past Alcohol Use History: Daily Past Drug Use History: None Reported - Past Family History Mother Family Medical History: No Reported History Medications and Allergies Home Medications Medication Instructions Recorded Confirmed Type Hctz 12.5mg Tablet 12.5 mg PO DAILY 12/09/24 12/09/24 History Metoprolol Succinate [Toprol XL] 50 mg PO BID 12/09/24 12/09/24 History Rosuvastatin Calcium 5 mg PO DAILY 12/09/24 12/09/24 History lisinopriL [Zestril] 20 mg PO DAILY 12/09/24 12/09/24 History norethindrone-e.estradioL-iron 1 tab PO DAILY 12/09/24 12/09/24 History [Aurovela 24 Fe 1 mg-20 Mcg Tab] Allergies Allergy/AdvReac Type Severity Reaction Status Date / Time dichloralphenazone Allergy HEADACHE Verified 12/09/24 15:24 [From Midrin] AND HIGH BLOOD PRESSURE isometheptene [From Midrin] Allergy HEADACHE Verified 12/09/24 15:24 AND HIGH BLOOD PRESSURE Physical Exam Vitals: Vital Signs Temp Pulse Resp BP Pulse Ox 12/10/24 05:30 96 17 123/72 98 12/10/24 03:00 98 18 133/76 95 12/10/24 02:00 98 18 114/68 93 L 12/10/24 01:00 101 H 18 119/72 92 L 12/09/24 23:00 104 H 17 103/59 93 L 12/09/24 21:32 96 18 133/58 93 L 12/09/24 20:00 101 H 18 108/50 95 12/09/24 18:45 97.8 F 79 16 107/66 95 12/09/24 17:25 97.4 F L 92 18 117/70 99 12/09/24 15:45 26 H 79/54 12/09/24 15:30 80 10 L 74/52 12/09/24 14:50 94 F L 72 18 90/62 97 Intake and Output 12/09/24 12/10/24 12/10/24 22:59 06:59 14:59 Intake Total 552 Balance 552 Intake: Blood Product 552 Rc Pheresis 2 As3 Unit 278 [id number] Rc Pheresis 2 As3 Unit 274 [id number] General appearance: The patient is alert, oriented, appears in no acute distress. HET: Head is normocephalic and atraumatic. Conjunctiva pink. Sclera anicteric. Neck: Supple without lymphadenopathy. Trachea midline. Heart: Regular. Lungs: Equal expansion, normal respiratory effort. Abdomen: Soft, nontender, nondistended. Skin: No rashes. No jaundice. Extremities: Normal skin color and turgor. No pedal edema. Neurological: No focal deficits. Alert and oriented x3. Results CBC & Chem 7: 12/10/24 05:28 12/10/24 05:28 Labs: Abnormal Lab Results - Last 24 Hours (Table) 12/09/24 12/09/24 12/09/24 Range/Units 15:25 15:25 15:25 WBC 25.0 H (3.8-10.6) k/uL RBC 5.82 H (3.80-5.40) m/uL Hgb 18.6 H (11.4-16.0) gm/dL Hct 55.3 H (34.0-46.0) % Neutrophils # 22.8 H (1.3-7.7) k/uL Lymphocytes # 0.9 L (1.0-4.8) k/uL APTT 21.2 L (22.0-30.0) sec Sodium 136 L (137-145) mmol/L Carbon Dioxide 18 L (22-30) mmol/L Creatinine 1.35 H (0.52-1.04) mg/dL Glucose 148 H (74-99) mg/dL Plasma Lactic Acid Koko (0.7-2.0) mmol/L Calcium (8.4-10.2) mg/dL Magnesium 1.5 L (1.6-2.3) mg/dL AST 77 H (14-36) U/L ALT 127 H (4-34) U/L Crossmatch 12/09/24 12/09/24 12/09/24 Range/Units 15:25 15:25 18:32 WBC (3.8-10.6) k/uL RBC (3.80-5.40) m/uL Hgb (11.4-16.0) gm/dL Hct (34.0-46.0) % Neutrophils # (1.3-7.7) k/uL Lymphocytes # (1.0-4.8) k/uL APTT (22.0-30.0) sec Sodium (137-145) mmol/L Carbon Dioxide (22-30) mmol/L Creatinine (0.52-1.04) mg/dL Glucose (74-99) mg/dL Plasma Lactic Acid Koko 4.1 H* 2.7 H* (0.7-2.0) mmol/L Calcium (8.4-10.2) mg/dL Magnesium (1.6-2.3) mg/dL AST (14-36) U/L ALT (4-34) U/L Crossmatch See Detail 12/09/24 12/10/24 12/10/24 Range/Units 20:52 05:28 05:28 WBC 14.6 H 10.8 H (3.8-10.6) k/uL RBC (3.80-5.40) m/uL Hgb 16.9 H (11.4-16.0) gm/dL Hct 50.9 H (34.0-46.0) % Neutrophils # 13.5 H 8.7 H (1.3-7.7) k/uL Lymphocytes # 0.6 L (1.0-4.8) k/uL APTT (22.0-30.0) sec Sodium (137-145) mmol/L Carbon Dioxide (22-30) mmol/L Creatinine (0.52-1.04) mg/dL Glucose 108 H (74-99) mg/dL Plasma Lactic Acid Koko (0.7-2.0) mmol/L Calcium 8.2 L (8.4-10.2) mg/dL Magnesium (1.6-2.3) mg/dL AST (14-36) U/L ALT (4-34) U/L Crossmatch Comments: CT angiogram abdomen pelvis reports no acute abnormality in the abdomen/pelvis. Specifically no convincing evidence of active upper or lower gastrointestinal bleeding. Assessment and Plan (1) GI bleed Narrative/Plan: 44-year-old female presenting with hematemesis and hematochezia x 1 day duration. History of alcohol abuse admits to drinking at least 5 days a week 1- 3 drinks with liquor. Had a 3 g drop in her hemoglobin was given 2 units of blood. No previous history of GI bleed other than about 2 weeks ago with reported hematochezia. No anticoagulation or NSAID use. Unclear etiology. Need to consider both upper and lower source for GI bleed. Need to consider possible peptic ulcer disease, gastritis, esophagitis, esophageal varices or other possible etiologies. Will plan to move forward today with upper endoscopy with further recommendations. Current Visit: Yes Status: Acute Code(s): K92.2 - GASTROINTESTINAL HEMORRHAGE, UNSPECIFIED SNOMED Code(s): 77533718 (2) Alcohol use Current Visit: Yes Status: Acute Code(s): Z78.9 - OTHER SPECIFIED HEALTH STATUS SNOMED Code(s): 163130 (3) Hematemesis Current Visit: Yes Status: Acute Code(s): K92.0 - HEMATEMESIS SNOMED Code(s): 7938650 (4) Hematochezia Current Visit: Yes Status: Acute Code(s): K92.1 - MELENA SNOMED Code(s): 585049858 (5) Hypotension Narrative/Plan: Improved Current Visit: Yes Status: Acute Code(s): I95.9 - HYPOTENSION, UNSPECIFIED SNOMED Code(s): 46451259 Plan: 1. Continue symptomatic and supportive care 2. Keep n.p.o. 3. Avoid NSAIDs 4. Protonix 40 mg twice daily 5. Daily CBC, transfuse for hemoglobin less than 7 6. Will plan for upper endoscopy today with further recommendations forthcoming. This was discussed with patient and . All questions answered. Patient is agreeable to proceed with upper endoscopy 7. Rest of medical management per primary medical team and program manager environmental planning 8. Recommend alcohol abstinence Thank you for this consultation, we will continue to follow. Dr. Josefa Hernández I agree with the dictator's note, documented as a scribe by Malina Ventura.
[2024-12-10 11:22] LABS: Prothrombin Time 11.3 sec (10.0-12.5)
--- NOTE | 2024-12-10 13:25 | P.HPIM ---
History of Present Illness H&P Date: 12/10/24 History of present illness; patient is a 44-year-old lady with past medical history significant for hypertension, alcohol abuse presents the ER because of vomiting blood and not bleeding per rectum. Patient stated that she was all right a few hours prior to arrival when she started noticing that she was having nausea followed by vomiting, vomitus was dark in color, there was streaks of maroon-colored blood in it. Patient also had bowel movements that were dark and had blood in it. Patient was complaining of abdominal cramps at that time. Patient multiple episodes of vomiting and dark stools. There was no complaint of fever or chills. Patient stated that she had a similar episode a couple weeks ago when she had blood in her stools. There was no complaint of chest pain. Patient denies any shortness of breath. Patient was feeling lethargic and weakness. Initial lab work done in the ER showed showed WBC 25.0, hemoglobin 18.6, platelet count 341, sodium 136, potassium 4.2, BUN 17, creatinine 1.35, glucose 148, lactate 4.1, magnesium 1.5 AST 77, ALT 127, troponin 0.012 serum alcohol less than 10 CTA abdomen pelvis done showed no acute abnormality in the pelvis or abdominal area Patient admitted to internal medicine service REVIEW OF SYSTEMS: CONSTITUTIONAL: No fever, no malaise, no fatigue. HEENT: No recent visual problems or hearing problems. Denied any sore throat. CARDIOVASCULAR: No chest pain, orthopnea, PND, no palpitations, no syncope. PULMONARY: No shortness of breath, no cough, no hemoptysis. GASTROINTESTINAL: As mentioned NEUROLOGICAL: No headaches, no weakness, no numbness. HEMATOLOGICAL: Denies any bleeding or petechiae. GENITOURINARY: Denies any burning micturition, frequency, or urgency. MUSCULOSKELETAL/RHEUMATOLOGICAL: Denies any joint pain, swelling, or any muscle pain. ENDOCRINE: Denies any polyuria or polydipsia. The rest of the 14-point review of systems is negative. PHYSICAL EXAMINATION: GENERAL: The patient is alert and oriented x3, not in any acute distress. Well developed, well nourished. HEENT: Pupils are round and equally reacting to light. EOMI. No scleral icterus. No conjunctival pallor. Normocephalic, atraumatic. No pharyngeal erythema. No thyromegaly. CARDIOVASCULAR: S1 and S2 present. No murmurs, rubs, or gallops. PULMONARY: Chest is clear to auscultation, no wheezing or crackles. ABDOMEN: Soft, nontender, nondistended, normoactive bowel sounds. No palpable organomegaly. MUSCULOSKELETAL: No joint swelling or deformity. EXTREMITIES: No cyanosis, clubbing, or pedal edema. NEUROLOGICAL: Gross neurological examination did not reveal any focal deficits. SKIN: No rashes. Assessment and plan Hematemesis Bleeding per rectum Hypotension most likely due to hypovolemia Acute blood loss anemia Acute transaminitis Lactic acidosis Hypomagnesemia Acute kidney injury History of alcohol abuse Monitor vital signs Monitor CBC Monitor CMP Continue telemetry monitoring Serial electrolytes monitoring Serial H&H Start IV fluids Start IV Protonix Avoid antiplatelets and NSAIDs Consult GI Consult ICU Labs and medication were reviewed.. Continue same treatment. Continue with symptomatic treatment. Resume home medication. Monitor labs and vitals. DVT and GI prophylaxis. Further recommendations as per clinical course of the patient Dictation was produced using algrano dictation software. please excuse any grammatical, word or spelling errors. Past Medical History Past Medical History: Hypertension, Osteoarthritis (OA) Additional Past Medical History / Comment(s): FAST HEART RATE ,MIGRAINE HEADACHE , IBS, History of Any Multi-Drug Resistant Organisms: None Reported Past Surgical History: No Surgical Hx Reported Past Anesthesia/Blood Transfusion Reactions: Family History of Problems w/ Anesthesia Additional Past Anesthesia/Blood Transfusion Reaction / Comment(s): FIRST ANESTHETIC. FATHER- DIFFICULTY WITH BREATHING Past Psychological History: No Psychological Hx Reported Smoking Status: Never smoker Past Alcohol Use History: Daily Past Drug Use History: None Reported - Past Family History Mother Family Medical History: No Reported History Medications and Allergies Home Medications Medication Instructions Recorded Confirmed Type Hctz 12.5mg Tablet 12.5 mg PO DAILY 12/09/24 12/09/24 History Metoprolol Succinate [Toprol XL] 50 mg PO BID 12/09/24 12/09/24 History Rosuvastatin Calcium 5 mg PO DAILY 12/09/24 12/09/24 History lisinopriL [Zestril] 20 mg PO DAILY 12/09/24 12/09/24 History norethindrone-e.estradioL-iron 1 tab PO DAILY 03/19/25 03/19/25 History [Aurovela 24 Fe 1 mg-20 Mcg Tab] Allergies Allergy/AdvReac Type Severity Reaction Status Date / Time dichloralphenazone Allergy HEADACHE Verified 12/09/24 15:24 [From Midrin] AND HIGH BLOOD PRESSURE isometheptene [From Midrin] Allergy HEADACHE Verified 12/09/24 15:24 AND HIGH BLOOD PRESSURE Physical Exam Vitals: Vital Signs Temp Pulse Resp BP Pulse Ox 12/10/24 08:48 111 H 18 131/87 97 12/10/24 08:11 98.6 F 103 H 18 131/91 96 12/10/24 05:30 96 17 123/72 98 12/10/24 03:00 98 18 133/76 95 12/10/24 02:00 98 18 114/68 93 L 12/10/24 01:00 101 H 18 119/72 92 L 12/09/24 23:00 104 H 17 103/59 93 L 12/09/24 21:32 96 18 133/58 93 L 12/09/24 20:00 101 H 18 108/50 95 12/09/24 18:45 97.8 F 79 16 107/66 95 12/09/24 17:25 97.4 F L 92 18 117/70 99 12/09/24 15:45 26 H 79/54 12/09/24 15:30 80 10 L 74/52 12/09/24 14:50 94 F L 72 18 90/62 97 Intake and Output 12/09/24 12/10/24 12/10/24 22:59 06:59 14:59 Intake Total 552 Balance 552 Intake: Blood Product 552 Rc Pheresis 2 As3 Unit 278 [id number] Rc Pheresis 2 As3 Unit 274 [id number] Results CBC & Chem 7: 12/10/24 05:28 12/10/24 05:28 Labs: Abnormal Lab Results - Last 24 Hours (Table) 12/09/24 12/09/24 12/09/24 Range/Units 15:25 15:25 15:25 WBC 25.0 H (3.8-10.6) k/uL RBC 5.82 H (3.80-5.40) m/uL Hgb 18.6 H (11.4-16.0) gm/dL Hct 55.3 H (34.0-46.0) % Neutrophils # 22.8 H (1.3-7.7) k/uL Lymphocytes # 0.9 L (1.0-4.8) k/uL APTT 21.2 L (22.0-30.0) sec Sodium 136 L (137-145) mmol/L Carbon Dioxide 18 L (22-30) mmol/L Creatinine 1.35 H (0.52-1.04) mg/dL Glucose 148 H (74-99) mg/dL Plasma Lactic Acid Koko (0.7-2.0) mmol/L Calcium (8.4-10.2) mg/dL Magnesium 1.5 L (1.6-2.3) mg/dL AST 77 H (14-36) U/L ALT 127 H (4-34) U/L Crossmatch 12/09/24 12/09/24 12/09/24 Range/Units 15:25 15:25 18:32 WBC (3.8-10.6) k/uL RBC (3.80-5.40) m/uL Hgb (11.4-16.0) gm/dL Hct (34.0-46.0) % Neutrophils # (1.3-7.7) k/uL Lymphocytes # (1.0-4.8) k/uL APTT (22.0-30.0) sec Sodium (137-145) mmol/L Carbon Dioxide (22-30) mmol/L Creatinine (0.52-1.04) mg/dL Glucose (74-99) mg/dL Plasma Lactic Acid Koko 4.1 H* 2.7 H* (0.7-2.0) mmol/L Calcium (8.4-10.2) mg/dL Magnesium (1.6-2.3) mg/dL AST (14-36) U/L ALT (4-34) U/L Crossmatch See Detail 12/09/24 12/10/24 12/10/24 Range/Units 20:52 05:28 05:28 WBC 14.6 H 10.8 H (3.8-10.6) k/uL RBC (3.80-5.40) m/uL Hgb 16.9 H (11.4-16.0) gm/dL Hct 50.9 H (34.0-46.0) % Neutrophils # 13.5 H 8.7 H (1.3-7.7) k/uL Lymphocytes # 0.6 L (1.0-4.8) k/uL APTT (22.0-30.0) sec Sodium (137-145) mmol/L Carbon Dioxide (22-30) mmol/L Creatinine (0.52-1.04) mg/dL Glucose 108 H (74-99) mg/dL Plasma Lactic Acid Koko (0.7-2.0) mmol/L Calcium 8.2 L (8.4-10.2) mg/dL Magnesium (1.6-2.3) mg/dL AST (14-36) U/L ALT (4-34) U/L Crossmatch
[2024-12-10] MEDS ORDERED: LIDOCAINE 1% INJ 10MG/ML (20 ML MDV) ONE (13:30)
[2024-12-10] MEDS ORDERED: PROPOFOL 10 MG/ML 20 ML VIAL IV ONE (13:30)
[2024-12-10] MEDS: SODIUM CHLORIDE 0.9% 500 ML 500 ML IV ONE (13:34)
--- NOTE | 2024-12-10 13:43 | P.PCN ---
Date of Procedure: 12/10/24 Procedure(s) Performed: BRIEF HISTORY: Patient is a 44-year-old, pleasant, white female scheduled for an upper endoscopy as a part evaluation of 2 episodes of coffee-ground emesis and multiple episodes of maroon-colored stools. She came to the emergency room yesterday and was found to be hypotensive and was resuscitated with units of PRBC. Hemoglobin was 16 g/dL which dropped to 15 g/dL today.. PROCEDURE PERFORMED: Esophagogastroduodenoscopy. PREOPERATIVE DIAGNOSIS: Acute upper GI bleed. IV sedation per anesthesia. PROCEDURE: After informed consent was obtained, the patient was brought into the endoscopy unit. IV sedation was administered by Anesthesia under continuous monitoring. Initially the Olympus GIF-140 video endoscope was inserted into the mouth. Esophagus intubated without any difficulty. It was gradually advanced into the stomach and duodenum and carefully examined. The bulb and the second part of the duodenum appeared normal. Mild duodenitis noted in the duodenal bulb. The scope at this time was withdrawn to the stomach, adequately insufflated with air, and upon careful examination, mucosa of the antrum had mild gastritis. No evidence of active upper GI bleed seen. Mucosa of the, body, cardia and the fundus appeared normal. The scope was then withdrawn into the esophagus. The GE junction was located at 39 cm from the incisors. Small hiatal hernia noted. 2 small erosions in the distal esophagus consistent with LA grade B reflux esophagitis. The esophagus appeared normal. There were no erosions or ulcerations seen and the patient tolerated the procedure well. IMPRESSION: 1. Mild antral gastritis and duodenitis 2. No evidence of active upper GI bleed 3. Small hiatal hernia and LA grade B reflux esophagitis. RECOMMENDATIONS: The findings of this examination were discussed with the patient as well as her family. She will be scheduled for colonoscopy tomorrow. Intermittent should be started on a clear liquid diet today. Monitor CBC daily..
[2024-12-10 14:42] VITALS: RESP 16
--- NOTE | 2024-12-10 14:47 | P.CNPUL ---
History of Present Illness Consult date: 12/10/24 Requesting physician: Rob Gagnon Reason for consult: other (Acute GI bleeding evaluate for possible ICU admission) Chief complaint: Coffee-ground emesis and multiple bloody bowel movements/maroon-colored History of present illness: This is a 44-year-old female, seen in the ER mostly for evaluation for possible ICU admission. Apparently the patient is known to have history of alcohol use, she drinks almost on a daily basis at least 5 days of the week. But no history of liver cirrhosis, no history of portal hypertension, and no history of esophageal varices. Patient is known to have history of IBS, and her last colonoscopy was about 7 years ago. Patient was seen in the ER with several e pisodes of nausea vomiting and diarrhea. She had several episodes of coffee- ground emesis, and she had multiple episodes of maroon-colored stools. Patient was brought into the ER, she was initially hypotensive required fluids and required 2 units of packed RBCs although her hemoglobin was relatively normal. Since admission, her initial hemoglobin was 18.6, follow-up hemoglobin was 16.9, and hemoglobin today is 15.5. Her blood pressure improved significantly after she received fluids and received 2 units of packed RBCs. Patient was already seen by gastroenterology, and she is supposed to have EGD today, and colonoscopy tomorrow. Indeed her EGD today showed mild antral gastritis and duodenitis, there was no evidence of active upper GI bleeding, she had a small hiatal hernia, and Dr. Kingston is recommending colonoscopy in AM. Review of Systems Constitutional: Negative Cardiac: Negative Hematologic: As noted in HPI GI: As noted in HPI Genitourinary: Negative Musculoskeletal: Negative Endocrine: Negative Psychiatric: Negative Pulmonary: Negative Skin: Negative Neurologic: Negative Past Medical History Past Medical History: Hypertension, Osteoarthritis (OA) Additional Past Medical History / Comment(s): FAST HEART RATE ,MIGRAINE HEADACHE , IBS, History of Any Multi-Drug Resistant Organisms: None Reported Past Surgical History: No Surgical Hx Reported Past Anesthesia/Blood Transfusion Reactions: Family History of Problems w/ Anesthesia Additional Past Anesthesia/Blood Transfusion Reaction / Comment(s): FIRST ANESTHETIC. FATHER- DIFFICULTY WITH BREATHING Past Psychological History: No Psychological Hx Reported Smoking Status: Never smoker Past Alcohol Use History: Daily Past Drug Use History: None Reported - Past Family History Mother Family Medical History: No Reported History Medications and Allergies Home Medications Medication Instructions Recorded Confirmed Type Hctz 12.5mg Tablet 12.5 mg PO DAILY 12/09/24 12/09/24 History Metoprolol Succinate [Toprol XL] 50 mg PO BID 12/09/24 12/09/24 History Rosuvastatin Calcium 5 mg PO DAILY 12/09/24 12/09/24 History lisinopriL [Zestril] 20 mg PO DAILY 12/09/24 12/09/24 History norethindrone-e.estradioL-iron 1 tab PO DAILY 12/09/24 12/09/24 History [Aurovela 24 Fe 1 mg-20 Mcg Tab] Allergies Allergy/AdvReac Type Severity Reaction Status Date / Time dichloralphenazone Allergy HEADACHE Verified 12/09/24 15:24 [From Midrin] AND HIGH BLOOD PRESSURE isometheptene [From Midrin] Allergy HEADACHE Verified 12/09/24 15:24 AND HIGH BLOOD PRESSURE Physical Exam Vitals: Vital Signs Temp Pulse Resp BP Pulse Ox 12/10/24 13:07 98.9 F 98 20 129/91 98 12/10/24 08:48 111 H 18 131/87 97 12/10/24 08:11 98.6 F 103 H 18 131/91 96 12/10/24 05:30 96 17 123/72 98 12/10/24 03:00 98 18 133/76 95 12/10/24 02:00 98 18 114/68 93 L 12/10/24 01:00 101 H 18 119/72 92 L 12/09/24 23:00 104 H 17 103/59 93 L 12/09/24 21:32 96 18 133/58 93 L 12/09/24 20:00 101 H 18 108/50 95 12/09/24 18:45 97.8 F 79 16 107/66 95 12/09/24 17:25 97.4 F L 92 18 117/70 99 12/09/24 15:45 26 H 79/54 12/09/24 15:30 80 10 L 74/52 12/09/24 14:50 94 F L 72 18 90/62 97 Intake and Output 12/09/24 12/10/24 12/10/24 22:59 06:59 14:59 Intake Total 552 100 Balance 552 100 Intake: IV 100 Blood Product 552 Rc Pheresis 2 As3 Unit 278 [id number] Pheresis 2 As3 Unit 274 [id number] General appearance: Physical exam revealed a 44-year-old female in no distress Head: Atraumatic, normocephalic HEENT: PERRLA, EOMI, nonicteric, no neck masses no JVD Chest: Clear bilaterally no rhonchi no wheezes Cardiac: Normal S1-S2, no S3 gallop. Abdomen: Soft nontender no MAG no rebound no guarding Extremities: No clubbing edema or cyanosis Neurologic: Alert oriented x 3 no gross focal deficit Skin: No rash Results - Laboratory Findings CBC and BMP: 12/10/24 05:28 12/10/24 05:28 PT/INR, D-dimer PT 11.3 sec (10.0-12.5) 12/10/24 10:47 INR 1.0 (<1.2) 12/10/24 10:47 Abnormal lab findings: Abnormal Labs 12/09/24 12/09/24 12/09/24 15:25 15:25 15:25 WBC 25.0 H RBC 5.82 H Hgb 18.6 H Hct 55.3 H Neutrophils # 22.8 H Lymphocytes # 0.9 L APTT 21.2 L Sodium 136 L Carbon Dioxide 18 L Creatinine 1.35 H Glucose 148 H Plasma Lactic Acid Koko Calcium Magnesium 1.5 L AST 77 H ALT 127 H Crossmatch 12/09/24 12/09/24 12/09/24 15:25 15:25 18:32 WBC RBC Hgb Hct Neutrophils # Lymphocytes # APTT Sodium Carbon Dioxide Creatinine Glucose Plasma Lactic Acid Koko 4.1 H* 2.7 H* Calcium Magnesium AST ALT Crossmatch See Detail 12/09/24 12/10/24 12/10/24 20:52 05:28 05:28 WBC 14.6 H 10.8 H RBC Hgb 16.9 H Hct 50.9 H Neutrophils # 13.5 H 8.7 H Lymphocytes # 0.6 L APTT Sodium Carbon Dioxide Creatinine Glucose 108 H Plasma Lactic Acid Koko Calcium 8.2 L Magnesium AST ALT Crossmatch - Diagnostic Findings Additional studies: CT angio of abdomen and pelvis, showed no acute abnormality there was no convincing evidence of active upper or lower GI bleeding. Assessment and Plan Assessment: Impression: Acute GI bleeding, likely lower GI in nature considering the patient had already EGD and she was found to have mostly minimal gastritis and duodenitis, and no evidence of active bleeding and no evidence of esophageal varices no evidence of gastric ulcer. History of irritable bowel syndrome History of alcohol use Hematemesis mostly secondary to erosive gastritis/duodenitis Hypotension secondary to GI bleeding, resolved, patient received 2 years of packed RBCs on her initial presentation Recommendation: Continue Protonix 40 mg twice daily Continue to avoid nonsteroidal anti-inflammatory drugs No urgency to admit the patient to the ICU at this point, however if the patient shows any hemodynamic instability or any worsening bleeding she could be transferred to the ICU but for the time being we will downgrade to third floor/3 S. Proceed with colonoscopy in a.m. Recommend alcohol abstinence Will follow as needed. Time with Patient: Greater than 30
[2024-12-10] MEDS: PEG 3350 (236 GM/BTL) + LYTES 4,000 ML BOTTLE PO ONE (16:57)
[2024-12-10] MEDS: lisinopriL 20 MG TAB PO SCH (16:59)
[2024-12-10] MEDS ORDERED: LORazepam 1 MG/0.5 ML VIAL IV PRN ×3 (18:28)
[2024-12-10] MEDS ORDERED: ZINC OXIDE PASTE (Z-GUARD) 1 APPLIC TOPICAL PRN (19:16)
[2024-12-10] MEDS: METOPROLOL SUCCINATE (ER) 50 MG TAB.ER.24H PO SCH (19:44)
[2024-12-11 07:00] LABS: HCT 40.5 % (34.0-46.0); HGB 13.6 gm/dL (11.4-16.0); MCH 31.9 pg (25.0-35.0); MCHC 33.7 g/dL (31.0-37.0); MCV 94.6 fL (80.0-100.0); Mean Platelet Volume 7.6; Platelet Count 189 k/uL (150-450); RBC 4.28 m/uL (3.80-5.40); RDW 12.9 % (11.5-15.5); WBC 7.9 k/uL (3.8-10.6)
[2024-12-11 07:16] LABS: African American GFR (CKD) >90 (>60 ml/min/1.73 sqM); Anion Gap 6 mmol/L; Blood Urea Nitrogen 9 mg/dL (7-17); Calcium 7.8 mg/dL (8.4-10.2); Carbon Dioxide 25 mmol/L (22-30); Chloride 104 mmol/L (98-107); Glucose 94 mg/dL (74-99); Non-African American GFR(CKD) >90 (>60 ml/min/1.73 sqM); Potassium 3.8 mmol/L (3.5-5.1); Sodium 135 mmol/L (137-145)
[2024-12-11 08:04] VITALS: TEMP 98.4
--- NOTE | 2024-12-11 13:04 | P.PN ---
Subjective Progress Note Date: 12/11/24 patient is a 44-year-old lady with past medical history significant for hypertension, alcohol abuse presents the ER because of vomiting blood and not bleeding per rectum. Patient stated that she was all right a few hours prior to arrival when she started noticing that she was having nausea followed by vom iting, vomitus was dark in color, there was streaks of maroon-colored blood in it. Patient also had bowel movements that were dark and had blood in it. Patient was complaining of abdominal cramps at that time. Patient multiple episodes of vomiting and dark stools. There was no complaint of fever or chills. Patient stated that she had a similar episode a couple weeks ago when she had blood in her stools. There was no complaint of chest pain. Patient denies any shortness of breath. Patient was feeling lethargic and weakness. Initial lab work done in the ER showed showed WBC 25.0, hemoglobin 18.6, platelet count 341, sodium 136, potassium 4.2, BUN 17, creatinine 1.35, glucose 148, lactate 4.1, magnesium 1.5 AST 77, ALT 127, troponin 0.012 serum alcohol less than 10 CTA abdomen pelvis done showed no acute abnormality in the pelvis or abdominal area Patient admitted to internal medicine service 12/11. Patient seen and examined. EGD done showed mild antral gastritis and duodenitis, there was no evidence of active upper GI bleeding, she had a small hiatal hernia. Denies any further blood in the stool. Patient is currently being prepped for colonoscopy for today REVIEW OF SYSTEMS: CONSTITUTIONAL: No fever, no malaise,. CARDIOVASCULAR: No chest pain, no palpitations, no syncope. PULMONARY: No shortness of breath, no cough, GASTROINTESTINAL: No diarrhea, no nausea, no vomiting, no abdominal pain. NEUROLOGICAL: No headaches, no weakness, PHYSICAL EXAMINATION: GENERAL: The patient is alert and oriented x3, not in any acute distress. Well developed, well nourished. HEENT: Pupils are round and equally reacting to light. EOMI. No scleral icterus. No conjunctival pallor. Normocephalic, atraumatic. No pharyngeal erythema. No thyromegaly. CARDIOVASCULAR: S1 and S2 present. No murmurs, rubs, or gallops. PULMONARY: Chest is clear to auscultation, no wheezing or crackles. ABDOMEN: Soft, nontender, nondistended, normoactive bowel sounds. No palpable organomegaly. MUSCULOSKELETAL: No joint swelling or deformity. EXTREMITIES: No cyanosis, clubbing, or pedal edema. NEUROLOGICAL: Gross neurological examination did not reveal any focal deficits. SKIN: No rashes. Assessment and plan Hematemesis Bleeding per rectum Hypotension most likely due to hypovolemia Acute blood loss anemia Acute transaminitis Lactic acidosis Hypomagnesemia Acute kidney injury History of alcohol abuse Monitor vital signs Monitor CBC Monitor CMP Continue telemetry monitoring Serial electrolytes monitoring Serial H&H Continue IV Protonix 40 mg twice a day Avoid antiplatelets and NSAIDs EGD done showed Mild antral gastritis and duodenitis, No evidence of active upper GI bleed.Small hiatal hernia and LA grade B reflux esophagitis. Patient scheduled for colonoscopy today Labs and medication were reviewed.. Continue same treatment. Continue with symptomatic treatment. Resume home medication. Monitor labs and vitals. DVT and GI prophylaxis. Further recommendations as per clinical course of the patient Dictation was produced using [employer] dictation software. please excuse any grammatical, word or spelling errors. Objective - Vital Signs Vital signs: Vital Signs Temp 98.4 F 12/11/24 08:00 Pulse 78 12/11/24 08:00 Resp 16 12/11/24 08:00 BP 123/77 12/11/24 08:00 Pulse Ox 97 12/11/24 08:00 FiO2 Intake & Output 12/10/24 12/11/24 12/11/24 18:59 06:59 18:59 Intake Total 100 20 Balance 100 20 Weight 94 kg 92.9 kg Intake: IV 100 20 Invasive Line 3 20 Other: Voiding Method Toilet # Voids 4 # Bowel Movements 6 - Labs CBC & Chem 7: 12/11/24 05:35 12/11/24 05:35 Labs: Abnormal Lab Results - Last 24 Hours (Table) 12/11/24 Range/Units 05:35 Sodium 135 L (137-145) mmol/L Calcium 7.8 L (8.4-10.2) mg/dL
--- NOTE | 2024-12-11 15:23 | P.PN ---
Subjective Progress Note Date: 12/11/24 Principal diagnosis: Acute GI bleed patient is a 44-year-old lady with past medical history significant for hypertension, alcohol abuse presents the ER because of vomiting blood and not bleeding per rectum. Patient stated that she was all right a few hours prior to arrival when she started noticing that she was having nausea followed by vomiting, vomitus was dark in color, there was streaks of maroon-colored blood in it. Patient also had bowel movements that were dark and had blood in it. Patient was complaining of abdominal cramps at that time. Patient multiple episodes of vomiting and dark stools. There was no complaint of fever or chills. Patient stated that she had a similar episode a couple weeks ago when she had blood in her stools. There was no complaint of chest pain. Patient denies any shortness of breath. Patient was feeling lethargic and weakness. Initial lab work done in the ER showed showed WBC 25.0, hemoglobin 18.6, platelet count 341, sodium 136, potassium 4.2, BUN 17, creatinine 1.35, glucose 148, lactate 4.1, magnesium 1.5 AST 77, ALT 127, troponin 0.012 serum alcohol less than 10CTA abdomen pelvis done showed no acute abnormality in the pelvis or abdominal areaPatient admitted to internal medicine service Patient was seen today on 12/11/2024, patient seems to be doing better today, not in any distress, scheduled to have colonoscopy today. Patient received a total of 2 units of packed RBCs since admission, hemoglobin today is 13.6. Patient is hemodynamically stable, no further episodes of hematemesis. Her last bowel movement showed some blood. Mostly black Stools Objective - Vital Signs Vital signs: Vital Signs Temp 98.4 F 12/11/24 08:00 Pulse 78 12/11/24 11:15 Resp 16 12/11/24 11:15 BP 114/78 12/11/24 11:15 Pulse Ox 97 12/11/24 08:00 FiO2 Intake & Output 12/10/24 12/11/24 12/11/24 18:59 06:59 18:59 Intake Total 100 20 Balance 100 20 Weight 94 kg 92.9 kg Intake: IV 100 20 Invasive Line 3 20 Other: Voiding Method Toilet # Voids 4 # Bowel Movements 6 - Exam GENERAL: The patient is alert and oriented x3, not in any acute distress. HEENT: Pupils are round and equally reacting to light. EOMI. No scleral icterus. No conjunctival pallor. Normocephalic, atraumatic. No pharyngeal erythema. No thyromegaly. CARDIOVASCULAR: S1 and S2 present. No murmurs, rubs, or gallops. PULMONARY: Chest is clear to auscultation, no wheezing or crackles. ABDOMEN: Soft, nontender, nondistended, normoactive bowel sounds. No palpable organomegaly. MUSCULOSKELETAL: No joint swelling or deformity. EXTREMITIES: No cyanosis, clubbing, or pedal edema. NEUROLOGICAL: Gross neurological examination did not reveal any focal deficits. SKIN: No rashes. - Labs CBC & Chem 7: 12/11/24 05:35 12/11/24 05:35 Labs: Abnormal Lab Results - Last 24 Hours (Table) 12/11/24 Range/Units 05:35 Sodium 135 L (137-145) mmol/L Calcium 7.8 L (8.4-10.2) mg/dL Assessment and Plan Assessment: Impression: Acute GI bleeding, likely lower GI in nature considering the patient had already EGD and she was found to have mostly minimal gastritis and duodenitis, and no evidence of active bleeding and no evidence of esophageal varices no evidence of gastric ulcer. History of irritable bowel syndrome History of alcohol use Hematemesis mostly secondary to erosive gastritis/duodenitis Hypotension secondary to GI bleeding, resolved, patient received 2 years of packed RBCs on her initial presentation Recommendation: Continue present supportive care measures Continue Protonix 40 mg twice daily Scheduled for colonoscopy today Further recommendations as per GI and after her colonoscopy findings today. Will follow as needed. Time with Patient: Less than 30
[2024-12-11] MEDS ORDERED: PROPOFOL 10 MG/ML 20 ML VIAL IV ONE (15:49)
[2024-12-11] MEDS: LACTATED RINGERS 1,000 ML IV ONE ×2 (16:11→16:13)
--- NOTE | 2024-12-11 16:12 | P.PCN ---
Date of Procedure: 12/11/24 Procedure(s) Performed: BRIEF HISTORY: Patient is a 44-year-old pleasant white female admitted to hospital with acute GI bleed. She had couple of episodes of coffee-ground emesis followed by multiple episodes of bright red blood per rectum. She underwent an upper endoscopy yesterday that revealed mild gastritis. She is scheduled scheduled for an elective colonoscopy as a part of evaluation of acute lower GI bleed. PROCEDURE PERFORMED: Colonoscopy. PREOPERATIVE DIAGNOSIS: Acute lower GI bleed. IV sedation per Anesthesia. PROCEDURE: After informed consent was obtained, the patient, was brought into the endoscopy unit. IV sedation was administered by Anesthesia under continuous monitoring. Digital rectal examination was normal. Initially the Olympus CF-160 flexible video colonoscope was then inserted in the rectum, gradually advanced into the cecum without any difficulty. Careful examination was performed as the scope was gradually being withdrawn. Ileocecal valve and the appendiceal orifice were visualized and appeared normal. Prep was excellent. Mucosa of the cecum, ascending colon, transverse colon, descending colon, sigmoid colon, and rectum appeared normal. Retroflexion was performed in the rectum and small internal hemorrhoid were seen. The patient tolerated the procedure well. IMPRESSION: Normal-appearing colon from rectum to cecum with no evidence of colorectal neoplasia. Small internal hemorrhoids. RECOMMENDATIONS: Findings of this examination were discussed with the patient as well as her family. She was advised to be on high-fiber diet and take fiber supplements on a regular basis. Advance to regular diet. She can be discharged home today. Recommended repeat colonoscopy in 10 years..
[2024-12-11 18:09] VITALS: BP 108/74; PULSE 65
--- NOTE | 2024-12-26 08:49 | P.DS ---
Providers Date of admission: 12/09/24 17:45 Expected date of discharge: 12/11/24 Attending physician: Shireen Dumont Consults: 12/09/24 17:45 Consult Physician Stat Consulting Provider: Chelsi Robles Consult Reason/Comments: acute gi bleed, hypotension Do you want consulting provider notified?: Already Contacted 12/09/24 17:53 Consult Physician Urgent Consulting Provider: Inna Hernández Consult Reason/Comments: gi bleed, hypotension s/p 2 units prbc Do you want consulting provider notified?: Already Contacted Primary care physician: Callum Wheeler [facility] Course: Discharge diagnoses; Hematemesis Bleeding per rectum Hypotension most likely due to hypovolemia Acute blood loss anemia Acute transaminitis Lactic acidosis Hypomagnesemia Acute kidney injury History of alcohol abuse Hospital course; patient is a 44-year-old lady with past medical history significant for hypertension, alcohol abuse presents the ER because of vomiting blood and not bleeding per rectum. Patient stated that she was all right a few hours prior to arrival when she started noticing that she was having nausea followed by vomiting, vomitus was dark in color, there was streaks of maroon-colored blood in it. Patient also had bowel movements that were dark and had blood in it. Patient was complaining of abdominal cramps at that time. Patient multiple episodes of vomiting and dark stools. There was no complaint of fever or chills. Patient stated that she had a similar episode a couple weeks ago when she had blood in her stools. There was no complaint of chest pain. Patient denies any shortness of breath. Patient was feeling lethargic and weakness. Initial lab work done in the ER showed showed WBC 25.0, hemoglobin 18.6, platelet count 341, sodium 136, potassium 4.2, BUN 17, creatinine 1.35, glucose 148, lactate 4.1, magnesium 1.5 AST 77, ALT 127, troponin 0.012 serum alcohol less than 10 CTA abdomen pelvis done showed no acute abnormality in the pelvis or abdominal area Patient admitted to internal medicine service 12/11. Patient seen and examined. EGD done showed mild antral gastritis and duodenitis, there was no evidence of active upper GI bleeding, she had a small hiatal hernia. Denies any further blood in the stool. Patient colonoscopy done that showed normal appearing colon from rectum to cecum with no evidence of colorectal neoplasia. GI recommended be discharging patient on oral Protonix. Outpatient follow-up with PCP and GI PHYSICAL EXAMINATION: GENERAL: The patient is alert and oriented x3, not in any acute distress. Well developed, well nourished. HEENT: Pupils are round and equally reacting to light. EOMI. No scleral icterus. No conjunctival pallor. Normocephalic, atraumatic. No pharyngeal erythema. No thyromegaly. CARDIOVASCULAR: S1 and S2 present. No murmurs, rubs, or gallops. PULMONARY: Chest is clear to auscultation, no wheezing or crackles. ABDOMEN: Soft, nontender, nondistended, normoactive bowel sounds. No palpable organomegaly. MUSCULOSKELETAL: No joint swelling or deformity. EXTREMITIES: No cyanosis, clubbing, or pedal edema. NEUROLOGICAL: Gross neurological examination did not reveal any focal deficits. SKIN: No rashes. Dictation was produced using [employer] dictation software. please excuse any grammatical, word or spelling errors. Patient Condition at Discharge: Good Plan - Discharge Summary Discharge Rx Participant: Yes New Discharge Prescriptions: New Pantoprazole Sodium [Protonix] 40 mg PO DAILY 30 Days #30 tab Continue Rosuvastatin Calcium 5 mg PO DAILY lisinopriL [Zestril] 20 mg PO DAILY Hctz 12.5mg Tablet 12.5 mg PO DAILY Metoprolol Succinate [Toprol XL] 50 mg PO BID norethindrone-e.estradioL-iron [Aurovela 24 Fe 1 mg-20 Mcg Tab] 1 tab PO DAILY Discharge Medication List Hctz 12.5mg Tablet 12.5 mg PO DAILY 12/09/24 [History] Metoprolol Succinate [Toprol XL] 50 mg PO BID 12/09/24 [History] Rosuvastatin Calcium 5 mg PO DAILY 12/09/24 [History] lisinopriL [Zestril] 20 mg PO DAILY 12/09/24 [History] norethindrone-e.estradioL-iron [Aurovela 24 Fe 1 mg-20 Mcg Tab] 1 tab PO DAILY 12/09/24 [History] Pantoprazole Sodium [Protonix] 40 mg PO DAILY 30 Days #30 tab 12/11/24 [Rx] Follow up Appointment(s)/Referral(s): Callum Wheeler DO [Primary Care Provider] - 1-2 days (Please call to schedule appointment) Discharge Disposition: HOME SELF-CARE
== END 2024-12-11 17:59 | disposition home or self-care (01) | DRG 377 ==
LOC: EC 14:42 → 2SICU 17:45 → 3SCARD 12-10 11:06
PROVIDERS: ADMIT Hospitalist; ATTEND Hospitalist
PROC: 30233N1 Transfusion of Nonautologous Red Blood Cells into Peripheral Vein, Percutaneous Approach (ICD-10-PCS; 2024-12-09)
PROC: 0DJ08ZZ Inspection of Upper Intestinal Tract, Via Natural or Artificial Opening Endoscopic (ICD-10-PCS; principal; 2024-12-10 07:45)
PROC: 0DJD8ZZ Inspection of Lower Intestinal Tract, Via Natural or Artificial Opening Endoscopic (ICD-10-PCS; 2024-12-11)
DX: K29.81 Duodenitis with bleeding (principal); R57.1 Hypovolemic shock; E87.20 Acidosis, unspecified; K21.01 Gastro-esophageal reflux disease with esophagitis, with bleeding; I10 Essential (primary) hypertension; F10.10 Alcohol abuse, uncomplicated; D62 Acute posthemorrhagic anemia; N17.9 Acute kidney failure, unspecified; K29.71 Gastritis, unspecified, with bleeding; E86.1 Hypovolemia; K44.9 Diaphragmatic hernia without obstruction or gangrene; K64.0 First degree hemorrhoids; R74.01 Elevation of levels of liver transaminase levels; E83.42 Hypomagnesemia; Z79.899 Other long term (current) drug therapy; Z87.42 Personal history of other diseases of the female genital tract; Z87.19 Personal history of other diseases of the digestive system
CPT/HCPCS: 36415; 36430; 43235; 45378; 74174; 80048; 80053; 80320; 81025; 83605; 83690; 83735; 84484; 85025; 85027; 85610; 85730; 86850; 86900; 86901; 86920; 96365; 96375; 96376; 99291

== ENCOUNTER → 2025-01-07 | Outpatient (CLI) | payer OTHER ==
[2025-01-07 15:48] LABS: Hepatitis B Surface Antigen Nonreactive (Nonreactive); Hepatitis C IgG Antibody Nonreactive (Nonreactive)
[2025-01-07 16:12] LABS: ALT 54 U/L (8-44); AST 25 U/L (13-35); Albumin 4.1 g/dL (3.8-4.9); Albumin/Globulin Ratio 1.86 Ratio (1.60-3.17); Alkaline Phosphatase 41 U/L (41-126); BUN/Creat Ratio 16.83 Ratio (12.00-20.00); Blood Urea Nitrogen 10.1 mg/dL (9.0-27.0); Calcium 9.2 mg/dL (8.7-10.3); Carbon Dioxide 24.5 mmol/L (21.6-31.8); Chloride 105 mmol/L (96-109); Globulin 2.2 g/dL (1.6-3.3); Glucose 122 mg/dL (70-110); Potassium 4.4 mmol/L (3.5-5.5); Sodium 141 mmol/L (135-145); Total Bilirubin 0.4 mg/dL (0.3-1.2); Total Protein 6.3 g/dL (6.2-8.2)
== END | disposition home or self-care (01) ==
LOC: LABWHC1 09:19
PROVIDERS: ATTEND Nurse Practitioner Family
DX: R74.8 Abnormal levels of other serum enzymes (principal)
CPT/HCPCS: 36415; 80053; 86803; 87340